=== PATIENT | female | born 1930 | race Caucasian/White ===

== ENCOUNTER 2019-06-30 13:51 | Day surgery (SDC) | payer MEDICARE, OTHER ==
[2019-06-30] MEDS ORDERED: Depo-Medrol 40 MG/ML IM ONE (13:52)
[2019-06-30] MEDS ORDERED: Marcaine 0.5% SDV 10 ML IJ ONE (13:52)
[2019-06-30] MEDS ORDERED: Xylocaine 1% Vial 30 ML PF IJ ONE (13:52)
--- NOTE | 2019-06-30 16:17 | XRAY ---
8 seconds fluoroscopy time in surgery for right SI joint injection.
--- NOTE | 2019-06-30 16:18 | XRAY ---
Indication: Right SI joint injection. Intraoperative fluoroscopy was provided for 8 seconds. 2 digital spot images submitted for interpretation demonstrates posterior needle tip projecting over the inferior right SI joint. Correlate with intraoperative findings/report.
== END 2019-06-30 15:12 | disposition home or self-care (01) ==
LOC: SDC-PAIN 13:51
PROVIDERS: ATTEND Psychiatry & Neurology Pain Medicine
DX: M46.1 Sacroiliitis, not elsewhere classified (principal); E11.9 Type 2 diabetes mellitus without complications; I10 Essential (primary) hypertension; I73.9 Peripheral vascular disease, unspecified; E06.3 Autoimmune thyroiditis; G62.9 Polyneuropathy, unspecified; Z79.899 Other long term (current) drug therapy
CPT/HCPCS: 27096; 72020; 77002; 82962; J1030; J2001; G0260

== ENCOUNTER 2019-07-28 12:32 | Day surgery (SDC) | payer MEDICARE, OTHER ==
[2019-07-28] MEDS ORDERED: Xylocaine 1% Vial 30 ML PF IJ ONE (12:33)
[2019-07-28] MEDS ORDERED: Depo-Medrol 40 MG/ML IM ONE (12:33)
[2019-07-28] MEDS ORDERED: Marcaine 0.5% SDV 10 ML IJ ONE (12:33)
--- NOTE | 2019-07-28 15:15 | XRAY ---
Indication: Right SI joint injection. Intraoperative fluoroscopy was provided for 6 seconds. 2 digital spot images submitted for interpretation demonstrates posterior needle tip projecting over the inferior right SI joint. Correlate with intraoperative findings/report.
--- NOTE | 2019-07-28 15:17 | XRAY ---
6 seconds fluoroscopy time in surgery for right SI joint injection.
== END 2019-07-28 14:12 | disposition home or self-care (01) ==
LOC: SDC-PAIN 12:32
PROVIDERS: ATTEND Psychiatry & Neurology Pain Medicine
DX: M46.1 Sacroiliitis, not elsewhere classified (principal); E11.9 Type 2 diabetes mellitus without complications; I10 Essential (primary) hypertension; E06.3 Autoimmune thyroiditis; I73.9 Peripheral vascular disease, unspecified; G62.9 Polyneuropathy, unspecified; Z79.899 Other long term (current) drug therapy
CPT/HCPCS: 72020; 77002; 82962; G0260; 27096; J1030; J2001

== ENCOUNTER 2019-10-06 13:37 | Day surgery (SDC) | payer MEDICARE, OTHER ==
[2019-10-06] MEDS ORDERED: Marcaine 0.5% SDV 10 ML IJ ONE (13:38)
[2019-10-06] MEDS ORDERED: Xylocaine 1% Vial 30 ML PF IJ ONE (13:38)
[2019-10-06] MEDS ORDERED: Depo-Medrol 40 MG/ML IM ONE (13:38)
[2019-10-06] MEDS ORDERED: Lactated Ringers 1,000 ML IV ONE (14:34)
--- NOTE | 2019-10-06 15:18 | XRAY ---
Indication: Right sacral RFA. Intraoperative fluoroscopy was provided for 33 seconds. 3 digital spot images submitted for interpretation demonstrates 4 posterior needle tips projecting over the right sacral nerve roots. Correlate with intraoperative findings/report.
--- NOTE | 2019-10-06 16:22 | XRAY ---
33 seconds fluoroscopy time in surgery for right SI joint RFA.
== END 2019-10-06 15:12 | disposition home or self-care (01) ==
LOC: SDC-PAIN 13:37
PROVIDERS: ATTEND Psychiatry & Neurology Pain Medicine
DX: M46.1 Sacroiliitis, not elsewhere classified (principal); E11.9 Type 2 diabetes mellitus without complications; I10 Essential (primary) hypertension; I73.9 Peripheral vascular disease, unspecified; E06.3 Autoimmune thyroiditis; G62.9 Polyneuropathy, unspecified; Z79.899 Other long term (current) drug therapy
CPT/HCPCS: 64625; 72202; 77002; 82962; J1030; J2001

== ENCOUNTER 2019-10-27 07:57 | Day surgery (SDC) | payer MEDICARE, OTHER ==
[2019-10-27] MEDS ORDERED: Depo-Medrol 40 MG/ML IM ONE (07:58)
[2019-10-27] MEDS ORDERED: Xylocaine 1% Vial 30 ML PF IJ ONE (07:58)
[2019-10-27] MEDS ORDERED: Sodium Chloride 0.9(Preservative Free) 10 ML IJ ONE (07:58)
--- NOTE | 2019-10-27 10:43 | XRAY ---
Indication: Right L4-S1 transforaminal LAVERNE. Intraoperative fluoroscopy was provided for 23 seconds. 4 digital spot images submitted for interpretation demonstrate posterior needle tips projecting over the expected course of the right L4 and L5 nerve roots. Small amount of contrast injected for needle tip placement. Correlate with intraoperative findings/report.
--- NOTE | 2019-10-27 11:20 | XRAY ---
23 seconds fluoroscopy time in surgery for right L4-S1 transforaminal LAVERNE.
[2019-10-27] MEDS ORDERED: Lactated Ringers 1,000 ML IV ONE (12:35)
== END 2019-10-27 10:12 | disposition home or self-care (01) ==
LOC: SDC-PAIN 07:57
PROVIDERS: ATTEND Psychiatry & Neurology Pain Medicine
DX: M54.16 Radiculopathy, lumbar region (principal); E11.9 Type 2 diabetes mellitus without complications; I10 Essential (primary) hypertension; E06.3 Autoimmune thyroiditis; I73.9 Peripheral vascular disease, unspecified; G62.9 Polyneuropathy, unspecified; Z79.899 Other long term (current) drug therapy
CPT/HCPCS: 64483; 64484; 72100; 77003; 82962; J1030; J2001; Q9966

== ENCOUNTER 2019-12-22 13:06 | Day surgery (SDC) | payer MEDICARE, OTHER ==
[2019-12-22] MEDS ORDERED: Depo-Medrol 40 MG/ML IM ONE (13:07)
[2019-12-22] MEDS ORDERED: Xylocaine 1% Vial 30 ML PF IJ ONE (13:07)
[2019-12-22] MEDS ORDERED: BUPIVACAINE 0.5% VIAL IJ ONE (13:07)
--- NOTE | 2019-12-22 15:05 | XRAY ---
Indication: Right hip bursa and intra-articular injection. Intraoperative fluoroscopy was provided for 35 seconds. 2 digital spot images submitted for interpretation demonstrates needle tip projecting just lateral to the right greater trochanter and a second new tip just lateral to the femur neck. Small amount of contrast injected for both needle tip placement. Correlate with intraoperative findings/report.
--- NOTE | 2019-12-22 15:07 | XRAY ---
35 seconds fluoroscopy time in surgery for right hip bursa and intra-articular injections.
== END 2019-12-22 14:38 | disposition home or self-care (01) ==
LOC: SDC-PAIN 13:06
PROVIDERS: ATTEND Psychiatry & Neurology Pain Medicine
DX: M70.61 Trochanteric bursitis, right hip (principal); M16.11 Unilateral primary osteoarthritis, right hip; E11.9 Type 2 diabetes mellitus without complications; I10 Essential (primary) hypertension; E06.3 Autoimmune thyroiditis; I73.9 Peripheral vascular disease, unspecified; G62.9 Polyneuropathy, unspecified; Z79.899 Other long term (current) drug therapy
CPT/HCPCS: 20610; 73502; 77002; 82962; J1030; J2001; Q9966

== ENCOUNTER 2020-05-03 13:31 | Day surgery (SDC) | payer MEDICARE, OTHER ==
[2020-05-03] MEDS ORDERED: BUPIVACAINE 0.5% VIAL IJ ONE (13:32)
[2020-05-03] MEDS ORDERED: Xylocaine 1% Vial 30 ML PF IJ ONE (13:32)
[2020-05-03] MEDS ORDERED: Depo-Medrol 40 MG/ML IM ONE (13:32)
--- NOTE | 2020-05-03 17:18 | XRAY ---
7 seconds fluoroscopy time in surgery for right SI joint injection.
--- NOTE | 2020-05-03 17:18 | XRAY ---
Indication: Right SI joint injection. Intraoperative fluoroscopy was provided for 7 seconds. 2 digital spot images submitted for interpretation demonstrates posterior needle tip projecting over the inferior right SI joint. Correlate with intraoperative findings/report.
== END 2020-05-03 15:48 | disposition home or self-care (01) ==
LOC: SDC-PAIN 13:31
PROVIDERS: ATTEND Psychiatry & Neurology Pain Medicine
DX: M46.1 Sacroiliitis, not elsewhere classified (principal); E11.9 Type 2 diabetes mellitus without complications; I10 Essential (primary) hypertension; I73.9 Peripheral vascular disease, unspecified; E06.3 Autoimmune thyroiditis; G62.9 Polyneuropathy, unspecified; Z79.899 Other long term (current) drug therapy
CPT/HCPCS: 27096; 72020; 77002; 82947; 82962; J1030; J2001; G0260

== ENCOUNTER 2020-06-28 13:02 | Day surgery (SDC) | payer MEDICARE, OTHER ==
[2020-06-28] MEDS ORDERED: Depo-Medrol 40 MG/ML IM ONE (13:03)
[2020-06-28] MEDS ORDERED: BUPIVACAINE 0.5% VIAL IJ ONE (13:03)
[2020-06-28] MEDS ORDERED: Xylocaine 1% Vial 30 ML PF IJ ONE (13:03)
--- NOTE | 2020-06-28 16:27 | XRAY ---
26 seconds fluoroscopy time in surgery for intra-articular injection of the left shoulder.
--- NOTE | 2020-06-28 16:37 | XRAY ---
Indication: Left shoulder injection. Intraoperative fluoroscopy provided for 26 seconds. 3 digital spot images submitted for interpretation demonstrates needle tip projecting over the left glenohumeral joint superiorly. Small amount of contrast injected for needle tip placement. Correlate with intraoperative findings/report.
== END 2020-06-28 16:20 | disposition home or self-care (01) ==
LOC: SDC-PAIN 13:02
PROVIDERS: ATTEND Psychiatry & Neurology Pain Medicine
DX: M19.012 Primary osteoarthritis, left shoulder (principal); M75.52 Bursitis of left shoulder; M79.18 Myalgia, other site; E11.9 Type 2 diabetes mellitus without complications; I10 Essential (primary) hypertension; E06.3 Autoimmune thyroiditis; I73.9 Peripheral vascular disease, unspecified; G62.9 Polyneuropathy, unspecified; Z79.899 Other long term (current) drug therapy
CPT/HCPCS: 20610; 62323; 73030; 77002; 82947; J1030; J2001; Q9966

== ENCOUNTER 2020-08-02 11:22 | Inpatient (IN) | payer MEDICARE, OTHER ==
[2020-08-02] MEDS ORDERED: Aplisol ID ONE (12:51)
[2020-08-03] MEDS ORDERED: NON-FORMULARY ITEM (Insulin Lispro 0 UNIT) SQ PRN (17:30)
[2020-08-03] MEDS ORDERED: ERTAPENEM SODIUM 1 GM IV SCH (17:30)
[2020-08-03] MEDS: Amaryl 2 MG PO SCH (17:59)
[2020-08-03] MEDS: HUMALOG SQ SCH (18:00)
[2020-08-03] MEDS: Lantus Insulin SQ SCH (18:00)
[2020-08-03] MEDS: TYLENOL EXTRA STRENGTH 500 MG PO SCH (20:58)
[2020-08-03] MEDS: HUMALOG SQ PRN (21:44)
[2020-08-04] MEDS: TYLENOL EXTRA STRENGTH 500 MG PO SCH ×3 (06:25→22:43)
[2020-08-04] MEDS: SYNTHROID 75 MCG PO SCH (06:26)
[2020-08-04] MEDS ORDERED: INSULIN ASPART 6 UNIT SQ SCH (08:00)
[2020-08-04] MEDS: HUMALOG SQ SCH ×3 (08:52→17:33)
[2020-08-04] MEDS: Amaryl 2 MG PO SCH ×2 (08:52→17:33)
[2020-08-04] MEDS: Lotensin 10 MG PO SCH (08:58)
[2020-08-04] MEDS: ENOXAPARIN SODIUM SQ SCH (08:58)
[2020-08-04] MEDS: Protonix 40MG Tablet PO SCH (08:59)
[2020-08-04] MEDS: PLAVIX 75 MG Tablet PO SCH (08:59)
[2020-08-04] MEDS: Ocuvite Tablet PO SCH (08:59)
[2020-08-04] MEDS: NORVASC 5 MG PO SCH (09:00)
[2020-08-04] MEDS: CLARITIN 10 MG PO SCH (09:01)
[2020-08-04] MEDS ORDERED: NON-FORMULARY ITEM (Cetirizine Hcl [Cetirizine Hcl] 10 MG) PO SCH (10:00)
[2020-08-04] MEDS ORDERED: MINERALS PO SCH (10:00)
[2020-08-04] MEDS ORDERED: LUTEIN PO SCH (10:00)
[2020-08-04] MEDS ORDERED: AMLODIPINE BESYLATE PO SCH (10:00)
[2020-08-04] MEDS ORDERED: Aplisol ID SCH (10:00)
[2020-08-04] MEDS ORDERED: VITS A C E PO SCH (10:00)
[2020-08-04] MEDS ORDERED: NON-FORMULARY ITEM (Omeprazole [Omeprazole] 40 MG) PO SCH (10:00)
[2020-08-04] MEDS ORDERED: BENAZEPRIL PO SCH (10:00)
[2020-08-04] MEDS: Invanz 1 GM*** 1 G in Sodium Chloride 100ML MINI-BAG PLUS 100 ML IV SCH (10:01)
[2020-08-04] MEDS: Aplisol ID SCH ×2 (10:41→12:56)
[2020-08-04] MEDS: Lantus Insulin SQ SCH (17:34)
--- NOTE | 2020-08-04 21:29 | PCM.HP ---
History of Present Illness - Chief Complaint Chief Complaint: DECONDITIONING R/T L HIP REPAIR History of Present Illness: is a 89 year old female.admitted for rehab after hip surgery - Review of Systems Constitutional: No Fever, No Chills Eyes: No Symptoms Ears, Nose, & Throat: No Symptoms Respiratory: No Cough, No Short Of Breath Cardiac: No Chest Pain, No Edema, No Syncope Abdominal/Gastrointestinal: No Abdominal Pain, No Nausea, No Vomiting, No Diarrhea Genitourinary Symptoms: No Dysuria Musculoskeletal: No Back Pain, No Neck Pain Skin: No Rash Neurological: No Dizziness, No Focal Weakness, No Sensory Changes Psychological: No Symptoms Endocrine: No Symptoms Hematologic/Lymphatic: No Symptoms Immunological/Allergic: No Symptoms Medications & Allergies Home Medications: Home Medication List Clopidogrel Bisulfate 75 mg [PLAVIX 75 MG Tablet] 75 mg PO DAILY 10/22/17 [History Confirmed 08/03/20] Glimepiride 2 mg [Amaryl 2 MG] 2 mg PO BID 10/22/17 [History Confirmed 08/03/20] Insulin Aspart [Novolog Flexpen] 6 unit SQ TIDWMEALS 10/22/17 [History Confirmed 08/03/20] Levothyroxine Sodium 75 Mcg [Synthroid 75 Mcg] 75 mcg PO 0600 10/22/17 [History Confirmed 08/03/20] Omeprazole 40 mg PO DAILY 10/22/17 [History Confirmed 08/03/20] Acetaminophen [Acetaminophen Extra Strength] 1,000 mg PO Q8H 08/03/20 [History Confirmed 08/03/20] Amlodipine Besylate/Benazepril [Lotrel 10-40 mg Capsule] 1 tab PO DAILY 08/03/20 [History Confirmed 08/03/20] Cetirizine HCl 10 mg PO DAILY 08/03/20 [History Confirmed 08/03/20] Enoxaparin Sodium [Lovenox] 30 mg SQ DAILY 08/03/20 [History Confirmed 08/03/20] Ertapenem Sodium 1 gm [Invanz 1 GM] 1 g IV [id number] 08/03/20 [History Confirmed 08/03/20] Insulin Glargine [Lantus Insulin] 24 unit SQ 1700 08/03/20 [History Confirmed 08/03/20] Insulin Lispro [Humalog] 0 unit SQ UD PRN 08/03/20 [History Confirmed 08/03/20] Vits A,C,E/Lutein/Minerals [Ocuvite with Lutein Tablet] 1 each PO DAILY 08/03/20 [History Confirmed 08/03/20] Allergies/Adverse Reactions: Allergies Allergy/AdvReac Type Severity Reaction Status Date / Time hydrocodone bitartrate Allergy Intermediate Nausea Verified 08/03/20 17:08 [From Vicodin] codeine Allergy Nausea Verified 08/03/20 17:08 nitrofurantoin Allergy Hives Verified 08/03/20 17:08 [From Macrodantin] oxycodone Allergy Verified 08/03/20 17:08 cephalexin [From Keflex] AdvReac Hives Verified 08/03/20 17:08 ciprofloxacin [From Cipro] AdvReac Hives Verified 08/03/20 17:08 - Past Medical History Past Medical History: Yes Neurological History: No Pertinent History ENT History: No Pertinent History Cardiac History: Hypertension, Other Respiratory History: Bronchitis Endocrine Medical History: Diabetes Type II, Other Musculoskelatal History: Other GI Medical History: No Pertinent History History: Other Pyscho-Social History: No Pertinent History Reproductive Disorders: No Pertinent History Comment: GERD, Spondylosis, Cellulitis (LLE), cataract removal, Bladder surgery, Microvascular decompression, Red's Disease - Female History Are you now?: No - Past Surgical History Past Surgical History: Yes Neuro Surgical History: No Pertinent History Cardiac History: No Pertinent History Respiratory Surgery: No Pertinent History GI Surgical History: No Pertinent History Genitourinary Surgical Hx: No Pertinent History Musculskeletal Surgical Hx: Orthopedic Surgery Female Surgical History: No Pertinent History Other Surgical History: bladder sling, micro vascular decompression to head after fall on the ice,Cataract removed w/ lens implant rodrigo eye, l hip orif - Social History Smoking Status: Former smoker Exposure to second hand smoke: No Alcohol: None Drug Use: none - Physical Exam Vital Signs: Vital Signs - 24 hr Temp Pulse BP Pulse Ox 08/04/20 19:55 95 08/04/20 04:21 98 F 76 126/59 92 L General Appearance: no apparent distress, alert Neurologic Exam: alert, oriented x 3, cooperative, normal mood/affect, nml cerebellar function, nml station & gait, sensation nml, No motor deficits Eye Exam: PERRL/EOMI, eyes nml inspection Ears, Nose, Throat Exam: normal ENT inspection, TMs normal, pharynx normal, moist mucous membranes Neck Exam: normal inspection, non-tender, supple, full range of motion Respiratory Exam: normal breath sounds, lungs clear, No respiratory distress Cardiovascular Exam: regular rate/rhythm, normal heart sounds, normal peripheral pulses Gastrointestinal/Abdomen Exam: soft, normal bowel sounds, No tenderness, No mass Back Exam: normal inspection, normal range of motion, No CVA tenderness, No vertebral tenderness Extremity Exam: normal inspection, normal range of motion, pelvis stable Skin Exam: normal color, warm, dry, No rash Wound Assessment: Skin/Wound Assessment Wound/Incision Assessment Start: 08/03/20 17:19 Text: Status: Active Freq: Q6H Protocol: Document 08/04/20 20:00 SG (Rec: 08/04/20 20:28 SG [id number]) Wound/Incision Assessment Left Lower Arm Wound Assessment Shift Assessment Wound Type Skin Tear Wound Stage Non Pressure Wound Dressing Status Dry & Intact Drainage Amount None General Appearance Clean/Dry Comment Dressing CDI Left Hip Wound Assessment Shift Assessment Wound Type Incision Wound Stage Non Pressure Wound Dressing Status Changed Drainage Amount None Drainage Odor None/Absent General Appearance Genia Intact,Clean/Dry Comment DRESSING CDI. Wound Photo Photo Taken No Lymphatic Exam: No adenopathy Results - Labs Lab/Micro Results: Lab Results-Last 24 Hours 08/03/20 08/04/20 08/04/20 Range/Units 21:40 07:07 10:56 POC Glucometer 203 H 94 185 H (74 to 106) mg/dL Hemoglobin A1c (4.5-6.0) % 08/04/20 08/04/20 Range/Units 15:46 16:14 POC Glucometer 197 H (74 to 106) mg/dL Hemoglobin A1c 6.34 H (4.5-6.0) % Accuchecks Date 08/04/20 Date 08/03/20 Time 22:00 - Other Procedures and Tests Respiratory Therapy 08/04/20 21:19 Oxygen NASAL CANNULA 2 lpm Assessment/Plan (1) Debilitated patient Current Visit: Yes Status: Acute Code(s): R53.81 - OTHER MALAISE (2) Hip fracture Current Visit: Yes Status: Acute Qualifiers: Encounter type: sequela Code(s): S72.009A - FRACTURE OF UNSP PART OF NECK OF UNSP FEMUR, INIT
[2020-08-05] MEDS: TYLENOL EXTRA STRENGTH 500 MG PO SCH ×3 (06:24→21:17)
[2020-08-05] MEDS: SYNTHROID 75 MCG PO SCH (06:24)
[2020-08-05] MEDS: HUMALOG SQ SCH ×3 (08:26→17:04)
[2020-08-05] MEDS: Amaryl 2 MG PO SCH ×2 (08:26→17:04)
[2020-08-05] MEDS: NORVASC 5 MG PO SCH (09:37)
[2020-08-05] MEDS: Ocuvite Tablet PO SCH (09:37)
[2020-08-05] MEDS: PLAVIX 75 MG Tablet PO SCH (09:37)
[2020-08-05] MEDS: Lotensin 10 MG PO SCH (09:37)
[2020-08-05] MEDS: Protonix 40MG Tablet PO SCH (09:37)
[2020-08-05] MEDS: CLARITIN 10 MG PO SCH (09:38)
[2020-08-05] MEDS: ENOXAPARIN SODIUM SQ SCH (09:38)
[2020-08-05] MEDS: Invanz 1 GM*** 1 G in Sodium Chloride 100ML MINI-BAG PLUS 100 ML IV SCH (09:38)
[2020-08-05] MEDS: Lantus Insulin SQ SCH (17:04)
[2020-08-05] MEDS: HUMALOG SQ PRN (17:05)
[2020-08-06] MEDS: TYLENOL EXTRA STRENGTH 500 MG PO SCH ×3 (05:56→21:41)
[2020-08-06] MEDS: SYNTHROID 75 MCG PO SCH (05:57)
[2020-08-06] MEDS: PLAVIX 75 MG Tablet PO SCH (08:51)
[2020-08-06] MEDS: CLARITIN 10 MG PO SCH (08:51)
[2020-08-06] MEDS: NORVASC 5 MG PO SCH (08:51)
[2020-08-06] MEDS: Amaryl 2 MG PO SCH ×2 (08:51→16:45)
[2020-08-06] MEDS: Ocuvite Tablet PO SCH (08:51)
[2020-08-06] MEDS: Lotensin 10 MG PO SCH (08:52)
[2020-08-06] MEDS: Protonix 40MG Tablet PO SCH (08:52)
[2020-08-06] MEDS: HUMALOG SQ SCH ×3 (08:52→16:45)
[2020-08-06] MEDS: ENOXAPARIN SODIUM SQ SCH (08:52)
[2020-08-06] MEDS: Invanz 1 GM*** 1 G in Sodium Chloride 100ML MINI-BAG PLUS 100 ML IV SCH (09:26)
[2020-08-06] MEDS: HUMALOG SQ PRN ×2 (11:50→22:04)
[2020-08-06] MEDS: Lantus Insulin SQ SCH (16:45)
[2020-08-07] MEDS: SYNTHROID 75 MCG PO SCH (05:02)
[2020-08-07] MEDS: TYLENOL EXTRA STRENGTH 500 MG PO SCH ×3 (05:02→21:16)
[2020-08-07] MEDS: CLARITIN 10 MG PO SCH (09:19)
[2020-08-07] MEDS: HUMALOG SQ SCH ×3 (09:19→20:05)
[2020-08-07] MEDS: PLAVIX 75 MG Tablet PO SCH (09:19)
[2020-08-07] MEDS: Amaryl 2 MG PO SCH ×2 (09:19→17:53)
[2020-08-07] MEDS: NORVASC 5 MG PO SCH (09:19)
[2020-08-07] MEDS: Lotensin 10 MG PO SCH (09:20)
[2020-08-07] MEDS: Protonix 40MG Tablet PO SCH (09:20)
[2020-08-07] MEDS: ENOXAPARIN SODIUM SQ SCH (09:20)
[2020-08-07] MEDS: Ocuvite Tablet PO SCH (09:20)
--- NOTE | 2020-08-07 15:37 | PCM.NOTE ---
Date and Time: 08/07/20 1537 Subjective Assessment: doing ok - Review of Systems Constitutional: No Fever, No Chills Eyes: No Symptoms Ears, Nose, & Throat: No Symptoms Respiratory: No Cough, No Short Of Breath Cardiac: No Chest Pain, No Edema, No Syncope Abdominal/Gastrointestinal: No Abdominal Pain, No Nausea, No Vomiting, No Diarrhea Genitourinary Symptoms: No Dysuria Musculoskeletal: No Back Pain, No Neck Pain Skin: No Rash Neurological: No Dizziness, No Focal Weakness, No Sensory Changes Psychological: No Symptoms Endocrine: No Symptoms Hematologic/Lymphatic: No Symptoms Immunological/Allergic: No Symptoms Objective Exam General Appearance: no apparent distress, alert Neurologic Exam: alert, oriented x 3, cooperative, normal mood/affect, nml cerebellar function, sensation nml, No motor deficits Skin Exam: normal color, warm, dry Wound Assessment: Skin/Wound Assessment Wound/Incision Assessment Start: 08/03/20 17:19 Text: Status: Active Freq: Q6H Protocol: Document 08/07/20 14:07 RAFITA (Rec: 08/07/20 14:08 [id number]) Wound/Incision Assessment Left Lower Arm Wound Assessment Shift Assessment Wound Type Skin Tear Wound Stage Non Pressure Wound Dressing Status Dry & Intact Drainage Amount None General Appearance Clean/Dry Secondary Dressing Absorbant Pad Comment Dressing CDI Left Hip Wound Assessment Shift Assessment Wound Type Incision Wound Stage Non Pressure Wound Dressing Status Dry & Intact Drainage Amount None Drainage Odor None/Absent General Appearance Clean/Dry Surrounding Tissue Purple,Edematous Topical Solution/Irrigant Enzymatic Irrigant Primary Dressing Gauze Pads Comment DRESSING CDI Wound Photo Photo Taken No Eye Exam: PERRL, EOMI, eyes nml inspection Ears, Nose, Throat Exam: normal ENT inspection, pharynx normal, moist mucous membranes Neck Exam: normal inspection, non-tender, supple, full range of motion Respiratory Exam: normal breath sounds, lungs clear, No respiratory distress Cardiovascular Exam: regular rate/rhythm, normal heart sounds Gastrointestinal/Abdomen Exam: soft, No tenderness, No mass Extremity Exam: normal inspection, normal range of motion Back Exam: normal inspection, normal range of motion, No CVA tenderness, No vertebral tenderness Pelvic Exam: deferred Rectal Exam: deferred OBJECTIVE DATA Vital Signs: Vital Signs - 24 hr Temp Pulse Resp BP Pulse Ox 08/07/20 08:00 97.2 F 82 16 161/71 97 08/07/20 07:16 97 08/06/20 20:00 98.1 F 75 20 141/61 96 08/06/20 19:50 95 08/06/20 16:56 98.3 F 78 16 126/58 97 Pain Assessment - Last Documented Pain Intensity 5 Pain Scale Used 0-10 Pain Scale Intake and Output: Intake & Output 08/05/20 08/06/20 08/07/20 08/08/20 10:59 11:59 11:59 11:59 Intake Total 1180 120 Output Total 300 Balance 880 120 Weight Lab Results: Lab Results-Last 24 Hours 08/06/20 08/06/20 08/06/20 Range/Units 16:27 16:31 16:35 Glucose 56 L (74-106) mg/dL POC Glucometer 47 L* 48 L* (50 to 500) mg/dL 08/06/20 08/06/20 08/07/20 Range/Units 17:29 21:54 06:58 Glucose (74-106) mg/dL POC Glucometer 80 244 H 237 H (50 to 500) mg/dL 08/07/20 Range/Units 11:30 Glucose (74-106) mg/dL POC Glucometer 218 H (50 to 500) mg/dL Multi-Disciplinary Progress Notes: Multi-Disciplinary Progress Notes 08/07/20 12:20 Case Management Note by Belinda Cain PATIENT PLANS TO CONTINUE TO WORK WITH PT TO MAXIMIZE SWING BED DAYS AND IS HOPEFUL TO RETURN HOME AT TIME OF DC Initialized on 08/07/20 12:20 - END OF NOTE Assessment/Plan (1) Debilitated patient Current Visit: Yes Status: Acute Assessment & Plan: Chief Complaint Diagnosis DECONDITIONING R/T L HIP REPAIR Allergies Allergy/AdvReac Type Severity Reaction Status Date / Time hydrocodone bitartrate Allergy Intermediate Nausea Verified 08/03/20 17:08 [From Vicodin] codeine Allergy Nausea Verified 08/03/20 17:08 nitrofurantoin Allergy Hives Verified 08/03/20 17:08 [From Macrodantin] oxycodone Allergy Verified 08/03/20 17:08 cephalexin [From Keflex] AdvReac Hives Verified 08/03/20 17:08 ciprofloxacin [From Cipro] AdvReac Hives Verified 08/03/20 17:08 Vital Signs (Last 24 hours) Temp Pulse Resp BP Pulse Ox 08/07/20 08:00 97.2 F 82 16 161/71 97 08/07/20 07:16 97 08/06/20 20:00 98.1 F 75 20 141/61 96 08/06/20 19:50 95 08/06/20 16:56 98.3 F 78 16 126/58 97 Home Medications Medication Instructions Recorded Confirmed Last Taken Type Acetaminophen [Acetaminophen Extra 1,000 mg PO Q8H 08/03/20 08/03/20 08/03/20 14:00 History Strength] Amlodipine Besylate/Benazepril 1 tab PO DAILY 08/03/20 08/03/20 Unknown History [Lotrel 10-40 mg Capsule] Cetirizine HCl 10 mg PO DAILY 08/03/20 08/03/20 Unknown History Enoxaparin Sodium [Lovenox] 30 mg SQ DAILY 08/03/20 08/03/20 08/03/20 09:20 History Ertapenem Sodium 1 gm [Invanz 1 1 g IV [id number] 08/03/20 08/03/20 08/03/20 History GM] Insulin Glargine [Lantus 24 unit SQ 1700 08/03/20 08/03/20 Unknown History Insulin] Insulin Lispro [Humalog] 0 unit SQ UD PRN 08/03/20 08/03/20 Unknown History Vits A,C,E/Lutein/Minerals 1 each PO DAILY 08/03/20 08/03/20 Unknown History [Ocuvite with Lutein Tablet] Current Medications Generic Name Dose Route Start Last Admin Trade Name Samm PRN Reason Stop Dose Admin Acetaminophen 1,000 mg 08/03/20 22:00 08/07/20 13:22 Tylenol Extra Strength 500 Mg PO 09/02/20 21:59 1,000 mg Q8HT ASAEL Administration Amlodipine Besylate 10 mg 08/04/20 10:00 08/07/20 09:19 Norvasc 5 Mg PO 09/03/20 09:59 10 mg DAILY ASAEL Administration Benazepril HCl 40 mg 08/04/20 10:00 08/07/20 09:20 Lotensin 10 Mg PO 09/03/20 09:59 40 mg DAILY ASAEL Administration Clopidogrel Bisulfate 75 mg 08/04/20 10:00 08/07/20 09:19 Plavix 75 Mg Tablet PO 09/03/20 09:59 75 mg DAILY ASAEL Administration Enoxaparin Sodium 30 mg 08/04/20 10:00 08/07/20 09:20 Enoxaparin Sodium SQ 09/03/20 09:59 30 mg DAILY ASAEL Administration Glimepiride 2 mg 08/03/20 18:00 08/07/20 09:19 Amaryl 2 Mg PO 09/02/20 17:59 2 mg BIDWM ASAEL Administration Insulin Glargine 24 unit 08/03/20 18:00 08/06/20 16:45 Lantus Insulin SQ 09/02/20 17:59 Not Given 1700 ASAEL Insulin Human Lispro 6 unit 08/03/20 18:00 08/07/20 11:55 Humalog SQ 09/02/20 17:59 6 unit TIDWMEALS ASAEL Administration Insulin Human Lispro 0 unit 08/07/20 09:28 Humalog SQ 09/06/20 09:27 UD PRN HYPERGLYCEMIA Levothyroxine Sodium 75 mcg 08/04/20 06:00 08/07/20 05:02 Synthroid 75 Mcg PO 09/03/20 05:59 75 mcg 0600 ASAEL Administration Loratadine 10 mg 08/04/20 10:00 08/07/20 09:19 Claritin 10 Mg PO 09/03/20 09:59 10 mg DAILY ASAEL Administration Multivitamins/Minerals 1 tab 08/04/20 10:00 08/07/20 09:20 Ocuvite Tablet PO 09/03/20 09:59 1 tab DAILY ASAEL Administration Pantoprazole Sodium 40 mg 08/04/20 10:00 08/07/20 09:20 Protonix 40mg Tablet PO 09/03/20 09:59 40 mg DAILY ASAEL Administration Tuberculin PPD 5 unit 08/15/20 10:00 Aplisol ID 08/15/20 10:01 DAILY ASAEL Discontinued Medications Generic Name Dose Route Start Last Admin Trade Name Freq PRN Reason Stop Dose Admin Ertapenem 1 g/ Sodium Chloride 100 mls @ 200 mls/hr 08/04/20 10:00 08/06/20 09:26 IV 08/06/20 10:29 200 mls/hr DAILY ASAEL Administration Insulin Human Lispro 0 unit 08/03/20 17:45 08/06/20 22:04 Humalog SQ 09/02/20 17:44 3 unit UD PRN Administration Tuberculin PPD 5 unit 08/03/20 10:00 08/04/20 12:56 Aplisol ID 08/03/20 10:01 Not Given DAILY ASAEL Tuberculin PPD 5 unit 08/04/20 10:00 08/04/20 10:45 Aplisol ID 08/04/20 10:01 5 unit DAILY ASAEL Administration Intake & Output (Last 24 hours) 08/05/20 08/06/20 08/07/20 08/08/20 10:59 11:59 11:59 11:59 Intake Total 1180 120 Output Total 300 Balance 880 120 Weight Laboratory Results (Last 24 hours) 08/07/20 08/07/20 08/06/20 11:30 06:58 21:54 Glucose POC Glucometer 218 H 237 H 244 H 08/06/20 08/06/20 08/06/20 17:29 16:35 16:31 Glucose 56 L POC Glucometer 80 48 L* 08/06/20 16:27 Glucose POC Glucometer 47 L* Orders (Last 24 hours) Category Date Time Status DC IV [Discontinue IV] .NOW Care 08/07/20 09:31 Active Weight,Daily Q7D Care 08/09/20 05:00 Active BMP Q14D Lab 08/16/20 04:00 Ordered Glucose Stat Lab 08/06/20 16:35 Completed POCT GLUCOSE Stat Lab 08/06/20 16:27 Completed POCT GLUCOSE Stat Lab 08/06/20 16:31 Completed POCT GLUCOSE Stat Lab 08/06/20 17:29 Completed POCT GLUCOSE Stat Lab 08/06/20 21:54 Completed POCT GLUCOSE Stat Lab 08/07/20 06:58 Completed POCT GLUCOSE Stat Lab 08/07/20 11:30 Completed Insulin Lispro [Humalog] Med 08/07/20 09:28 Active See Dose Instructions SQ UD PRN Tuberculin,Purif.prot.deriv. [Aplisol] Med 08/15/20 10:00 Active 5 unit ID DAILY Patient Care Notes (Last 24 hours) 08/07/20 12:20 Case Management Note by Belinda Cain PATIENT PLANS TO CONTINUE TO WORK WITH PT TO MAXIMIZE SWING BED DAYS AND IS HOPEFUL TO RETURN HOME AT TIME OF DC Initialized on 08/07/20 12:20 - END OF NOTE 08/07/20 09:50 Nursing Note by Carlotta Guerra Pt requested to remove N/C. Removed N/C; on RA approximated 20-30 minutes. Spo2 @ 95 % on RA. Initialized on 08/07/20 09:50 - END OF NOTE 08/07/20 09:29 SBAR Note by Carlotta Guerra SITUATION I am calling about MESSI SALGADO the patient's code status is Full Code The problem I am calling about is: Dr Bello called ; update on pt regarding her insulin verses her accu check results. Received new orders. ASSESSMENT RECOMMENDATION Physician notified at 0929 New Orders received: Vital Signs (Last 4 hours) Temp Pulse Resp BP Pulse Ox 08/07/20 08:00 97.2 F 82 16 161/71 97 08/07/20 07:16 97 Diagnois, Code Status Date of Arrival on Unit 08/03/20 Admitted From Direct Admit Diagnosis DECONDITIONING R/T L HIP REPAIR Resucitation Status Full Code Intake and Output 12 Hours 08/07/20 08/07/20 06:59 18:59 Intake Total 100 240 Output Total 300 Balance -200 240 Intake: Intake, Oral Amount 100 240 Output: Output, Urine Amount 300 Other: Number of Voids 1 Number of Bowel Movements 1 Physical Assessment Anxiety Level None,at ease,Awake,Calm,Low Mental Status Alert Patient Orientation Person,Place,Time Coma Scale Total 15 Breath Sounds [Anterior/ Clear,Diminished Posterior Throughout] Breath Sounds [Anterior Clear Throughout] Bowel Sounds [All Quadrants] Present Abdomen Description Soft,Non-Tender Urine Appearance Not Assessed Skin Color Normal for Race Skin Temperature Warm Pain Scale (Last 12 Hours) Pain Intensity 0 PAST MEDICAL HISTORY Neurological History No Pertinent History ENT History No Pertinent History Endocrine Medical History Diabetes Type II,Other Respiratory History Bronchitis Cardiac History Hypertension,Other GI Medical History No Pertinent History History Other Reproductive Disorders No Pertinent History Pyscho-Social History No Pertinent History Communicable Disease No Pertinent History Comment GERD, Spondylosis, Cellulitis (LLE), cataract removal, Bladder surgery, Microvascular decompression, Red's Disease Diabetic (Last 12 Hours) Time 07:30 POCT Glucose (LAST VALUE) {237 mg/dL (74 to 106) H} POCT Glucose (LAST VALUE) {244 mg/dL (74 to 106) H} POCT Glucose (LAST VALUE) {244 mg/dL (74 to 106) H} Lab Results (Last 12 Hours) 08/07/20 08/06/20 Range/Units 06:58 21:54 POC Glucometer 237 H 244 H (74 to 106) mg/dL Orders (Last 12 Hours) Category Date Time Status Weight,Daily Q7D Care 08/09/20 05:00 Active BMP Q14D Lab 08/16/20 04:00 Ordered Insulin Lispro [Humalog] Med 08/07/20 09:28 Ordered See Dose Instructions SQ UD PRN Tuberculin,Purif.prot.deriv. [Aplisol] Med 08/15/20 10:00 Active 5 unit ID DAILY Active Visit Medications Generic Name Dose Route Start Last Admin Trade Name Freq PRN Reason Stop Dose Admin Acetaminophen 1,000 mg 08/03/20 22:00 08/07/20 05:02 Tylenol Extra Strength 500 Mg PO 09/02/20 21:59 1,000 mg Q8HT ASAEL Administration Amlodipine Besylate 10 mg 08/04/20 10:00 08/07/20 09:19 Norvasc 5 Mg PO 09/03/20 09:59 10 mg DAILY ASAEL Administration Benazepril HCl 40 mg 08/04/20 10:00 08/07/20 09:20 Lotensin 10 Mg PO 09/03/20 09:59 40 mg DAILY ASAEL Administration Clopidogrel Bisulfate 75 mg 08/04/20 10:00 08/07/20 09:19 Plavix 75 Mg Tablet PO 09/03/20 09:59 75 mg DAILY ASAEL Administration Enoxaparin Sodium 30 mg 08/04/20 10:00 08/07/20 09:20 Enoxaparin Sodium SQ 09/03/20 09:59 30 mg DAILY ASAEL Administration Glimepiride 2 mg 08/03/20 18:00 08/07/20 09:19 Amaryl 2 Mg PO 09/02/20 17:59 2 mg BIDWM ASAEL Administration Insulin Glargine 24 unit 08/03/20 18:00 08/06/20 16:45 Lantus Insulin SQ 09/02/20 17:59 Not Given 1700 [facility] Insulin Human Lispro 6 unit 08/03/20 18:00 08/06/20 16:45 Humalog SQ 09/02/20 17:59 Not Given TIDWMEALS [facility] Levothyroxine Sodium 75 mcg 08/04/20 06:00 08/07/20 05:02 Synthroid 75 Mcg PO 09/03/20 05:59 75 mcg 0600 ASAEL Administration Loratadine 10 mg 08/04/20 10:00 08/07/20 09:19 Claritin 10 Mg PO 09/03/20 09:59 10 mg DAILY [facility] Administration Multivitamins/Minerals 1 tab 08/04/20 10:00 08/07/20 09:20 Ocuvite Tablet PO 09/03/20 09:59 1 tab DAILY ASAEL Administration Pantoprazole Sodium 40 mg 08/04/20 10:00 08/07/20 09:20 Protonix 40mg Tablet PO 09/03/20 09:59 40 mg DAILY ASAEL Administration Tuberculin PPD 5 unit 08/15/20 10:00 Aplisol ID 08/15/20 10:01 DAILY [facility] Home Medications Medication Instructions Recorded Confirmed Last Taken Type Acetaminophen [Acetaminophen Extra 1,000 mg PO Q8H 08/03/20 08/03/20 08/03/20 14:00 History Strength] Amlodipine Besylate/Benazepril 1 tab PO DAILY 08/03/20 08/03/20 Unknown History [Lotrel 10-40 mg Capsule] Cetirizine HCl 10 mg PO DAILY 08/03/20 08/03/20 Unknown History Enoxaparin Sodium [Lovenox] 30 mg SQ DAILY 08/03/20 08/03/20 08/03/20 09:20 History Ertapenem Sodium 1 gm [Invanz 1 1 g IV [id number] 08/03/20 08/03/20 08/03/20 History GM] Insulin Glargine [Lantus 24 unit SQ 1700 08/03/20 08/03/20 Unknown History Insulin] Insulin Lispro [Humalog] 0 unit SQ UD PRN 08/03/20 08/03/20 Unknown History Vits A,C,E/Lutein/Minerals 1 each PO DAILY 08/03/20 08/03/20 Unknown History [Ocuvite with Lutein Tablet] Initialized on 08/07/20 09:29 - END OF NOTE 08/06/20 17:52 Nursing Note by Carlotta Guerra Recheck accu check;80. Initialized on 08/06/20 17:52 - END OF NOTE 08/06/20 16:37 Nursing Note by Carlotta Guerra Glucose drawn. Daughter here with pt's supper. Pt sat up with her supper meal at this time. Initialized on 08/06/20 16:37 - END OF NOTE 08/06/20 16:33 Nursing Note by Carlotta Guerra Accu check 47 and 48 results, Glucose ordered per protocol. Called lab and made aware. Pt A&O times 3. Skin W/D. Initialized on 08/06/20 16:33 - END OF NOTE Code(s): R53.81 - OTHER MALAISE (2) Hip fracture Current Visit: Yes Status: Acute Qualifiers: Encounter type: sequela Code(s): S72.009A - FRACTURE OF UNSP PART OF NECK OF UNSP FEMUR, INIT
[2020-08-07] MEDS: Lantus Insulin SQ SCH (17:53)
[2020-08-07] MEDS: HUMALOG SQ PRN (21:30)
[2020-08-08] MEDS: TYLENOL EXTRA STRENGTH 500 MG PO SCH ×3 (06:02→21:02)
[2020-08-08] MEDS: SYNTHROID 75 MCG PO SCH (06:02)
[2020-08-08] MEDS: Amaryl 2 MG PO SCH ×2 (07:35→16:38)
[2020-08-08] MEDS: CLARITIN 10 MG PO SCH (09:57)
[2020-08-08] MEDS: NORVASC 5 MG PO SCH (09:58)
[2020-08-08] MEDS: Lotensin 10 MG PO SCH (09:58)
[2020-08-08] MEDS: PLAVIX 75 MG Tablet PO SCH (09:59)
[2020-08-08] MEDS: Protonix 40MG Tablet PO SCH (09:59)
[2020-08-08] MEDS: Ocuvite Tablet PO SCH (09:59)
[2020-08-08] MEDS: ENOXAPARIN SODIUM SQ SCH (10:01)
[2020-08-08] MEDS: HUMALOG SQ PRN ×3 (12:19→21:06)
[2020-08-08] MEDS: Lantus Insulin SQ SCH (18:00)
[2020-08-09] MEDS: TYLENOL EXTRA STRENGTH 500 MG PO SCH ×3 (06:11→21:02)
[2020-08-09] MEDS: SYNTHROID 75 MCG PO SCH (06:11)
[2020-08-09] MEDS: Amaryl 2 MG PO SCH ×2 (07:55→16:35)
[2020-08-09] MEDS: ENOXAPARIN SODIUM SQ SCH (09:06)
[2020-08-09] MEDS: Lotensin 10 MG PO SCH (09:06)
[2020-08-09] MEDS: NORVASC 5 MG PO SCH (09:07)
[2020-08-09] MEDS: CLARITIN 10 MG PO SCH (09:07)
[2020-08-09] MEDS: Protonix 40MG Tablet PO SCH (09:07)
[2020-08-09] MEDS: PLAVIX 75 MG Tablet PO SCH (09:07)
[2020-08-09] MEDS: Ocuvite Tablet PO SCH (09:07)
[2020-08-09] MEDS: HUMALOG SQ PRN ×2 (11:56→16:37)
[2020-08-09] MEDS: Colace 100 MG PO SCH ×2 (15:07→21:02)
[2020-08-09] MEDS: Lantus Insulin SQ SCH (16:35)
[2020-08-10] MEDS: SYNTHROID 75 MCG PO SCH (05:14)
[2020-08-10] MEDS: TYLENOL EXTRA STRENGTH 500 MG PO SCH ×3 (05:14→21:21)
[2020-08-10] MEDS: Amaryl 2 MG PO SCH ×2 (08:28→17:07)
[2020-08-10] MEDS: Lotensin 10 MG PO SCH (09:02)
[2020-08-10] MEDS: ENOXAPARIN SODIUM SQ SCH (09:02)
[2020-08-10] MEDS: Protonix 40MG Tablet PO SCH (09:02)
[2020-08-10] MEDS: NORVASC 5 MG PO SCH (09:02)
[2020-08-10] MEDS: PLAVIX 75 MG Tablet PO SCH (09:02)
[2020-08-10] MEDS: Ocuvite Tablet PO SCH (09:02)
[2020-08-10] MEDS: CLARITIN 10 MG PO SCH (09:02)
[2020-08-10] MEDS: Colace 100 MG PO SCH ×2 (09:03→21:21)
[2020-08-10] MEDS: HUMALOG SQ PRN ×2 (12:10→21:24)
[2020-08-10] MEDS: Lantus Insulin SQ SCH (17:07)
[2020-08-11] MEDS: SYNTHROID 75 MCG PO SCH (05:07)
[2020-08-11] MEDS: TYLENOL EXTRA STRENGTH 500 MG PO SCH ×3 (05:07→20:56)
[2020-08-11] MEDS: Protonix 40MG Tablet PO SCH (08:37)
[2020-08-11] MEDS: NORVASC 5 MG PO SCH (08:37)
[2020-08-11] MEDS: Lotensin 10 MG PO SCH (08:37)
[2020-08-11] MEDS: CLARITIN 10 MG PO SCH (08:37)
[2020-08-11] MEDS: ENOXAPARIN SODIUM SQ SCH (08:37)
[2020-08-11] MEDS: Ocuvite Tablet PO SCH (08:37)
[2020-08-11] MEDS: PLAVIX 75 MG Tablet PO SCH (08:38)
[2020-08-11] MEDS: Amaryl 2 MG PO SCH ×2 (08:38→17:22)
[2020-08-11] MEDS: Colace 100 MG PO SCH ×2 (08:38→20:57)
[2020-08-11] MEDS: HUMALOG SQ PRN ×2 (11:36→20:57)
[2020-08-11] MEDS: Lantus Insulin SQ SCH (17:23)
[2020-08-12] MEDS: SYNTHROID 75 MCG PO SCH (05:29)
[2020-08-12] MEDS: TYLENOL EXTRA STRENGTH 500 MG PO SCH ×3 (05:29→21:14)
[2020-08-12] MEDS: Amaryl 2 MG PO SCH ×2 (09:07→17:35)
[2020-08-12] MEDS: Lotensin 10 MG PO SCH (09:07)
[2020-08-12] MEDS: PLAVIX 75 MG Tablet PO SCH (09:08)
[2020-08-12] MEDS: Ocuvite Tablet PO SCH (09:09)
[2020-08-12] MEDS: Colace 100 MG PO SCH ×3 (09:09→21:16)
[2020-08-12] MEDS: NORVASC 5 MG PO SCH (09:10)
[2020-08-12] MEDS: Protonix 40MG Tablet PO SCH (09:10)
[2020-08-12] MEDS: CLARITIN 10 MG PO SCH (09:10)
[2020-08-12] MEDS: ENOXAPARIN SODIUM SQ SCH (09:11)
[2020-08-12] MEDS: Lantus Insulin SQ SCH (17:35)
[2020-08-12] MEDS: HUMALOG SQ PRN (17:36)
[2020-08-13] MEDS: TYLENOL EXTRA STRENGTH 500 MG PO SCH ×3 (06:16→21:10)
[2020-08-13] MEDS: SYNTHROID 75 MCG PO SCH (06:16)
[2020-08-13] MEDS: CLARITIN 10 MG PO SCH (08:57)
[2020-08-13] MEDS: Lotensin 10 MG PO SCH (08:57)
[2020-08-13] MEDS: Protonix 40MG Tablet PO SCH (08:57)
[2020-08-13] MEDS: Ocuvite Tablet PO SCH (08:57)
[2020-08-13] MEDS: PLAVIX 75 MG Tablet PO SCH (08:57)
[2020-08-13] MEDS: Amaryl 2 MG PO SCH ×2 (08:57→16:41)
[2020-08-13] MEDS: NORVASC 5 MG PO SCH (08:57)
[2020-08-13] MEDS: ENOXAPARIN SODIUM SQ SCH (08:58)
[2020-08-13] MEDS: Colace 100 MG PO SCH ×2 (08:58→21:10)
[2020-08-13] MEDS: HUMALOG SQ PRN ×2 (16:44→21:10)
[2020-08-13] MEDS: Lantus Insulin SQ SCH (16:44)
[2020-08-14] MEDS: TYLENOL EXTRA STRENGTH 500 MG PO SCH ×3 (05:29→21:05)
[2020-08-14] MEDS: SYNTHROID 75 MCG PO SCH (05:35)
[2020-08-14] MEDS: Amaryl 2 MG PO SCH ×2 (08:42→16:50)
[2020-08-14] MEDS: ENOXAPARIN SODIUM SQ SCH (09:53)
[2020-08-14] MEDS: NORVASC 5 MG PO SCH (09:54)
[2020-08-14] MEDS: PLAVIX 75 MG Tablet PO SCH (09:54)
[2020-08-14] MEDS: CLARITIN 10 MG PO SCH (09:54)
[2020-08-14] MEDS: Ocuvite Tablet PO SCH (09:54)
[2020-08-14] MEDS: Lotensin 10 MG PO SCH (09:54)
[2020-08-14] MEDS: Protonix 40MG Tablet PO SCH (09:55)
[2020-08-14] MEDS: Colace 100 MG PO SCH ×2 (09:55→21:06)
[2020-08-14] MEDS ORDERED: Aplisol ID SCH (10:00)
[2020-08-14] MEDS: HUMALOG SQ PRN ×2 (11:48→16:51)
[2020-08-14] MEDS: Lantus Insulin SQ SCH (16:51)
[2020-08-14 19:44] VITALS: O2SAT 98
[2020-08-15] MEDS: TYLENOL EXTRA STRENGTH 500 MG PO SCH ×3 (05:52→21:29)
[2020-08-15] MEDS: SYNTHROID 75 MCG PO SCH (05:53)
[2020-08-15] MEDS: Amaryl 2 MG PO SCH ×2 (08:11→16:31)
[2020-08-15] MEDS: NORVASC 5 MG PO SCH (09:11)
[2020-08-15] MEDS: CLARITIN 10 MG PO SCH (09:11)
[2020-08-15] MEDS: Protonix 40MG Tablet PO SCH (09:11)
[2020-08-15] MEDS: Ocuvite Tablet PO SCH (09:11)
[2020-08-15] MEDS: Lotensin 10 MG PO SCH (09:11)
[2020-08-15] MEDS: PLAVIX 75 MG Tablet PO SCH (09:11)
[2020-08-15] MEDS: Colace 100 MG PO SCH ×2 (09:11→21:29)
[2020-08-15] MEDS: ENOXAPARIN SODIUM SQ SCH (09:12)
[2020-08-15] MEDS ORDERED: Aplisol ID SCH (10:00)
[2020-08-15] MEDS: HUMALOG SQ PRN ×3 (12:13→21:29)
[2020-08-15] MEDS: Lantus Insulin SQ SCH (16:31)
[2020-08-16] MEDS: TYLENOL EXTRA STRENGTH 500 MG PO SCH ×2 (05:02→13:34)
[2020-08-16] MEDS: SYNTHROID 75 MCG PO SCH (05:02)
[2020-08-16 05:34] LABS: ANION GAP 12.9 MEQ/L (5-15); BLOOD UREA NITROGEN 18 mg/dL (7-17); CHLORIDE 100 mmol/L (98-107); Calcium 9.2 mg/dL (8.4-10.2); Carbon Dioxide 23 mmol/L (22-30); Creatinine 1 0.82 mg/dL (0.52-1.04); EST GLOMERULAR FILTRATION RATE > 60.0 ML/MIN; Glucose 153 mg/dL (74-106); Potassium 4.2 mmol/L (3.5-5.1); SODIUM 132 mmol/L (137-145)
[2020-08-16 07:28] VITALS: BP 129/60; PULSE 72
[2020-08-16] MEDS: Protonix 40MG Tablet PO SCH (09:19)
[2020-08-16] MEDS: Colace 100 MG PO SCH (09:19)
[2020-08-16] MEDS: CLARITIN 10 MG PO SCH (09:19)
[2020-08-16] MEDS: Amaryl 2 MG PO SCH (09:19)
[2020-08-16] MEDS: NORVASC 5 MG PO SCH (09:19)
[2020-08-16] MEDS: PLAVIX 75 MG Tablet PO SCH (09:19)
[2020-08-16] MEDS: Lotensin 10 MG PO SCH (09:19)
[2020-08-16] MEDS: Ocuvite Tablet PO SCH (09:20)
[2020-08-16] MEDS: ENOXAPARIN SODIUM SQ SCH (09:20)
--- NOTE | 2020-08-16 11:38 | PCM.NOTE ---
Date and Time: 08/16/20 1137 Subjective Assessment: doing better - Review of Systems Constitutional: No Fever, No Chills Eyes: No Symptoms Ears, Nose, & Throat: No Symptoms Respiratory: No Cough, No Short Of Breath Cardiac: No Chest Pain, No Edema, No Syncope Abdominal/Gastrointestinal: No Abdominal Pain, No Nausea, No Vomiting, No Diarrhea Genitourinary Symptoms: No Dysuria Musculoskeletal: No Back Pain, No Neck Pain Skin: No Rash Neurological: No Dizziness, No Focal Weakness, No Sensory Changes Psychological: No Symptoms Endocrine: No Symptoms Hematologic/Lymphatic: No Symptoms Immunological/Allergic: No Symptoms Objective Exam General Appearance: no apparent distress, alert Neurologic Exam: alert, oriented x 3, cooperative, normal mood/affect, nml cerebellar function, sensation nml, No motor deficits Skin Exam: normal color, warm, dry Wound Assessment: Skin/Wound Assessment Wound/Incision Assessment Start: 08/03/20 17:19 Text: Status: Active Freq: Q6H Protocol: Document 08/16/20 07:00 RN (Rec: 08/16/20 07:45 RN [id number]) Wound/Incision Assessment Left Hand Wound Assessment Shift Assessment Wound Type hematoma Wound Stage Non Pressure Wound Drainage Amount None Comment healing, open to air Left Hip Wound Assessment Shift Assessment Wound Type Incision Wound Stage Non Pressure Wound Dressing Status Dry & Intact Drainage Amount None Drainage Odor None/Absent General Appearance Well Approximated Surrounding Tissue [place] Primary Dressing vaseline gauze Secondary Dressing Gauze Pads Comment dressings cdi Wound Photo Photo Taken No Eye Exam: PERRL, EOMI, eyes nml inspection Ears, Nose, Throat Exam: normal ENT inspection, pharynx normal, moist mucous membranes Neck Exam: normal inspection, non-tender, supple, full range of motion Respiratory Exam: normal breath sounds, lungs clear, No respiratory distress Cardiovascular Exam: regular rate/rhythm, normal heart sounds Gastrointestinal/Abdomen Exam: soft, No tenderness, No mass Extremity Exam: normal inspection, normal range of motion Back Exam: normal inspection, normal range of motion, No CVA tenderness, No vertebral tenderness Pelvic Exam: deferred Rectal Exam: deferred OBJECTIVE DATA Vital Signs: Vital Signs - 24 hr Temp Pulse Resp BP Pulse Ox 08/16/20 07:00 98.3 F 72 18 129/60 98 08/15/20 19:00 98.6 F 80 18 138/65 98 Pain Assessment - Last Documented Pain Intensity 0 Pain Scale [facility] Intake and Output: Intake & Output 08/13/20 08/14/20 08/15/20 08/16/20 11:59 11:59 11:59 11:59 Intake Total 1500 1780 1640 1840 Output Total 600 Balance 900 1780 1640 1840 Weight 59.6 kg Lab Results: Lab Results-Last 24 Hours 08/15/20 08/15/20 08/16/20 Range/Units 16:08 20:44 04:25 Sodium 132 L (137-145) mmol/L Potassium 4.2 (3.5-5.1) mmol/L Chloride 100 (98-107) mmol/L Carbon Dioxide 23 (22-30) mmol/L Anion Gap 12.9 (5-15) MEQ/L BUN 18 H (7-17) mg/dL Creatinine 0.82 (0.52-1.04) mg/dL Estimated GFR > 60.0 ML/MIN Glucose 153 H (74-106) mg/dL POC Glucometer 231 H 238 H (74 to 106) mg/dL Calcium 9.2 (8.4-10.2) mg/dL 08/16/20 08/16/20 Range/Units 07:12 10:56 Sodium (137-145) mmol/L Potassium (3.5-5.1) mmol/L Chloride (98-107) mmol/L Carbon Dioxide (22-30) mmol/L Anion Gap (5-15) MEQ/L BUN (7-17) mg/dL Creatinine (0.52-1.04) mg/dL Estimated GFR ML/MIN Glucose (74-106) mg/dL POC Glucometer 147 H 265 H (74 to 106) mg/dL Calcium (8.4-10.2) mg/dL Multi-Disciplinary Progress Notes: Multi-Disciplinary Progress Notes 08/16/20 11:04 Occupational Therapy Note by Mita Tello seen in her room for skilled OT treatment session this morning. She participated in seated grooming/hygiene tasks to wash her hair with shampoo cap and comb/style her hair with setup. OTR reviewed use of woodyard operator with Maria Isabel to doff socks followed by education and training on sock aid to facilitate increased independence with donning socks as bending to reach is difficult for her. She demo'd good carryover with MARK Phillip and OTR educated her on community resources at which to obtain. Maria Isabel seated in recliner with feet supported on pillow with call light, phone, and bedside table within reach. Initialized on 08/16/20 11:04 - END OF NOTE 08/16/20 09:31 Case Management Note by Belinda Cain S/W PATIENT THIS AM- SHE IS STILL PLANNING TO DC TO [facility] AT TIME OF DC Initialized on 08/16/20 09:31 - END OF NOTE 08/15/20 16:14 Occupational Therapy Note by Mita Tello Ms. Rodas seen this morning for skilled Occupational Therapy servies to address independence and safety with I/ADLs, AE/AD needs/recommendations/education, and functional strength and endurance impacting I/ADL performance. She was seated in recliner with feet supported on pillow, working on a word search. She was agreeable to treatment session this date. She began with functional mobility to bathroom with SBA followed by toileting with SBA and grooming/hygiene activity at sink with supervision. She then performed functional mobility to therapy room using FWW followed by participation in seated BUE strengthening ther ex's with theraband (green) and 1# dumbbells 1x10 reps with rest breaks as needed. OTR educated Mraia Isabel on rest breaks, s/s to cease exercises, and ways to perform exercises safely at home using household items. She verbalized understanding of education provided and demo'd good carryover of exercises. She performed functional mobility back to her room using FWW with SBA and was seated in her recliner with lunch tray on bedside table, phone, and call light within reach. Will continue to see patient for skilled OT services to address deficits identified above. Initialized on 08/15/20 16:14 - END OF NOTE 08/15/20 15:24 Physical Therapy Note by David Luna Morning session: Pt was up and using restroom with DEPUTY K 9 as PT entered. Pt agreed to amb with PT. Pt was able to amb 120' with RW and CGA. Minimal cuing needed for amb and transfers. Pt returned to seated with call light nearby. Afternoon session: Pt in chair and agreeable to PT. Pt was able to amb to PT room and complete mat exercises. Pt completed exercises well, but needed assist with SLR. Pt seems motivated to improve and gave great effort. Pt amb back to room and returned to chair with call light at side. No nsg staff was at desk except SHELDON Blount, who will pass message to nurse to elevate LE at night for a short time. Moderate edema noted, but pt notes that it is near normal. Initialized on 08/15/20 15:24 - END OF NOTE 08/15/20 14:23 Case Management Note by Maty Collins REFERRAL FAXED TO [facility] FOR EXTENDED REHAB STAY. PT/DAUGHTER BOTH WANT [facility] THEIR FIRST CHOICE OF FACILITIES, THEY BOTH UNDERSTAND THAT IT IS THEIR PREFERENCE AND THEY WANT TO STAY LOCAL. SPOKE WITH ENMANU[facility] AT [facility], AND THEY WILL BE READY FOR PT WHEN MD IS READY FOR DISCHARGE. Initialized on 08/15/20 14:23 - END OF NOTE Assessment/Plan (1) Debilitated patient Current Visit: Yes Status: Acute Assessment & Plan: Chief Complaint Diagnosis DECONDITIONING R/T L HIP REPAIR Allergies Allergy/AdvReac Type Severity Reaction Status Date / Time hydrocodone bitartrate Allergy Intermediate Nausea Verified 08/03/20 17:08 [From Vicodin] codeine Allergy Nausea Verified 08/03/20 17:08 nitrofurantoin Allergy Hives Verified 08/03/20 17:08 [From Macrodantin] oxycodone Allergy Verified 08/03/20 17:08 cephalexin [From Keflex] AdvReac Hives Verified 08/03/20 17:08 ciprofloxacin [From Cipro] AdvReac Hives Verified 08/03/20 17:08 Vital Signs (Last 24 hours) Temp Pulse Resp BP Pulse Ox 08/16/20 07:00 98.3 F 72 18 129/60 98 08/15/20 19:00 98.6 F 80 18 138/65 98 Home Medications Medication Instructions Recorded Confirmed Last Taken Type Acetaminophen [Acetaminophen Extra 1,000 mg PO Q8H 08/03/20 08/03/20 08/03/20 14:00 History Strength] Amlodipine Besylate/Benazepril 1 tab PO DAILY 08/03/20 08/03/20 Unknown History [Lotrel 10-40 mg Capsule] Cetirizine HCl 10 mg PO DAILY 08/03/20 08/03/20 Unknown History Enoxaparin Sodium [Lovenox] 30 mg SQ DAILY 08/03/20 08/03/20 08/03/20 09:20 History Ertapenem Sodium 1 gm [Invanz 1 1 g IV [id number] 08/03/20 08/03/20 08/03/20 History GM] Insulin Glargine [Lantus 24 unit SQ 1700 08/03/20 08/03/20 Unknown History Insulin] Insulin Lispro [Humalog] 0 unit SQ UD PRN 08/03/20 08/03/20 Unknown History Vits A,C,E/Lutein/Minerals 1 each PO DAILY 08/03/20 08/03/20 Unknown History [Ocuvite with Lutein Tablet] Current Medications Generic Name Dose Route Start Last Admin Trade Name Rolandoq PRN Reason Stop Dose Admin Acetaminophen 1,000 mg 08/03/20 22:00 08/16/20 05:02 Tylenol Extra Strength 500 Mg PO 09/02/20 21:59 1,000 mg Q8HT ASAEL Administration Amlodipine Besylate 10 mg 08/04/20 10:00 08/16/20 09:19 Norvasc 5 Mg PO 09/03/20 09:59 10 mg DAILY ASAEL Administration Benazepril HCl 40 mg 08/04/20 10:00 08/16/20 09:19 Lotensin 10 Mg PO 09/03/20 09:59 40 mg DAILY ASAEL Administration Clopidogrel Bisulfate 75 mg 08/04/20 10:00 08/16/20 09:19 Plavix 75 Mg Tablet PO 09/03/20 09:59 75 mg DAILY ASAEL Administration Docusate Sodium 100 mg 08/09/20 14:59 08/16/20 09:19 Colace 100 Mg PO 09/08/20 14:58 100 mg BID ASAEL Administration Enoxaparin Sodium 30 mg 08/04/20 10:00 08/16/20 09:20 Enoxaparin Sodium SQ 09/03/20 09:59 30 mg DAILY ASAEL Administration Glimepiride 2 mg 08/03/20 18:00 08/16/20 09:19 Amaryl 2 Mg PO 09/02/20 17:59 2 mg BIDWM ASAEL Administration Insulin Glargine 24 unit 08/03/20 18:00 08/15/20 16:31 Lantus Insulin SQ 09/02/20 17:59 24 unit 1700 ASAEL Administration Insulin Human Lispro 0 unit 08/07/20 09:28 08/15/20 21:29 Humalog SQ 09/06/20 09:27 2 unit UD PRN Administration HYPERGLYCEMIA Levothyroxine Sodium 75 mcg 08/04/20 06:00 08/16/20 05:02 Synthroid 75 Mcg PO 09/03/20 05:59 75 mcg 0600 ASAEL Administration Loratadine 10 mg 08/04/20 10:00 08/16/20 09:19 Claritin 10 Mg PO 09/03/20 09:59 10 mg DAILY ASAEL Administration Multivitamins/Minerals 1 tab 08/04/20 10:00 08/16/20 09:20 Ocuvite Tablet PO 09/03/20 09:59 1 tab DAILY ASAEL Administration Pantoprazole Sodium 40 mg 08/04/20 10:00 08/16/20 09:19 Protonix 40mg Tablet PO 09/03/20 09:59 40 mg DAILY ASAEL Administration Discontinued Medications Generic Name Dose Route Start Last Admin Trade Name Freq PRN Reason Stop Dose Admin Ertapenem 1 g/ Sodium Chloride 100 mls @ 200 mls/hr 08/04/20 10:00 08/06/20 09:26 IV 08/06/20 10:29 200 mls/hr DAILY ASAEL Administration Insulin Human Lispro 6 unit 08/03/20 18:00 08/07/20 20:05 Humalog SQ 09/02/20 17:59 Not Given TIDWMEALS ASAEL Insulin Human Lispro 0 unit 08/03/20 17:45 08/06/20 22:04 Humalog SQ 09/02/20 17:44 3 unit UD PRN Administration Tuberculin PPD 5 unit 08/03/20 10:00 08/04/20 12:56 Aplisol ID 08/03/20 10:01 Not Given DAILY ASAEL Tuberculin PPD 5 unit 08/04/20 10:00 08/04/20 10:45 Aplisol ID 08/04/20 10:01 5 unit DAILY ASAEL Administration Tuberculin PPD 5 unit 08/15/20 10:00 08/15/20 10:44 Aplisol ID 08/15/20 10:01 5 unit DAILY ASAEL Administration Intake & Output (Last 24 hours) 08/13/20 08/14/20 08/15/20 08/16/20 11:59 11:59 11:59 11:59 Intake Total 1500 1780 1640 1840 Output Total 600 Balance 900 1780 1640 1840 Weight 59.6 kg Laboratory Results (Last 24 hours) 08/16/20 08/16/20 08/16/20 10:56 07:12 04:25 Sodium 132 L Potassium 4.2 Chloride 100 Carbon Dioxide 23 Anion Gap 12.9 BUN 18 H Creatinine 0.82 Estimated GFR > 60.0 Glucose 153 H POC Glucometer 265 H 147 H Calcium 9.2 08/15/20 08/15/20 20:44 16:08 Sodium Potassium Chloride Carbon Dioxide Anion Gap BUN Creatinine Estimated GFR Glucose POC Glucometer 238 H 231 H Calcium Orders (Last 24 hours) Category Date Time Status BMP Q14D Lab 08/16/20 04:25 Completed POCT GLUCOSE Stat Lab 08/15/20 11:01 Completed POCT GLUCOSE Stat Lab 08/15/20 16:08 Completed POCT GLUCOSE Stat Lab 08/15/20 20:44 Completed POCT GLUCOSE Stat Lab 08/16/20 07:12 Completed POCT GLUCOSE Stat Lab 08/16/20 10:56 Completed Patient Care Notes (Last 24 hours) 08/16/20 11:04 Occupational Therapy Note by Mita Tello seen in her room for skilled OT treatment session this morning. She participated in seated grooming/hygiene tasks to wash her hair with shampoo cap and comb/style her hair with setup. OTR reviewed use of woodyard operator with Maria Isabel to doff socks followed by education and training on sock aid to facilitate increased independence with donning socks as bending to reach is difficult for her. She demo'd good carryover with MIN A and OTR educated her on community resources at which to obtain. Maria Isabel seated in recliner with feet supported on pillow with call light, phone, and bedside table within reach. Initialized on 08/16/20 11:04 - END OF NOTE 08/16/20 09:31 Case Management Note by Belinda Cain S/W PATIENT THIS AM- SHE IS STILL PLANNING TO DC TO [facility] AT TIME OF DC Initialized on 08/16/20 09:31 - END OF NOTE 08/15/20 16:14 Occupational Therapy Note by Mita Tello Ms. Rodas seen this morning for skilled Occupational Therapy servies to address independence and safety with I/ADLs, AE/AD needs/recommendations/education, and functional strength and endurance impacting I/ADL performance. She was seated in recliner with feet supported on pillow, working on a word search. She was agreeable to treatment session this date. She began with functional mobility to bathroom with SBA followed by toileting with SBA and grooming/hygiene activity at sink with supervision. She then performed functional mobility to therapy room using FWW followed by participation in seated BUE strengthening ther ex's with theraband (green) and 1# dumbbells 1x10 reps with rest breaks as needed. OTR educated Maria Isabel on rest breaks, s/s to cease exercises, and ways to perform exercises safely at home using household items. She verbalized understanding of education provided and demo'd good carryover of exercises. She performed functional mobility back to her room using FWW with SBA and was seated in her recliner with lunch tray on bedside table, phone, and call light within reach. Will continue to see patient for skilled OT services to address deficits identified above. Initialized on 08/15/20 16:14 - END OF NOTE 08/15/20 15:24 Physical Therapy Note by David Luna Morning session: Pt was up and using restroom with DEPUTY K 9 as PT entered. Pt agreed to amb with PT. Pt was able to amb 120' with RW and CGA. Minimal cuing needed for amb and transfers. Pt returned to seated with call light nearby. Afternoon session: Pt in chair and agreeable to PT. Pt was able to amb to PT room and complete mat exercises. Pt completed exercises well, but needed assist with SLR. Pt seems motivated to improve and gave great effort. Pt amb back to room and returned to chair with call light at side. No nsg staff was at desk except SHELDON Blount, who will pass message to nurse to elevate LE at night for a short time. Moderate edema noted, but pt notes that it is near normal. Initialized on 08/15/20 15:24 - END OF NOTE 08/15/20 14:23 Case Management Note by Maty Collins REFERRAL FAXED TO [facility] FOR EXTENDED REHAB STAY. PT/DAUGHTER BOTH WANT [facility] THEIR FIRST CHOICE OF FACILITIES, THEY BOTH UNDERSTAND THAT IT IS THEIR PREFERENCE AND THEY WANT TO STAY LOCAL. SPOKE WITH ENMANUEL AT [facility], AND THEY WILL BE READY FOR PT WHEN MD IS READY FOR DISCHARGE. Initialized on 08/15/20 14:23 - END OF NOTE Code(s): R53.81 - OTHER MALAISE (2) Hip fracture Current Visit: Yes Status: Acute Qualifiers: Encounter type: sequela Code(s): S72.009A - FRACTURE OF UNSP PART OF NECK OF UNSP FEMUR, INIT
[2020-08-16] MEDS: HUMALOG SQ PRN (11:48)
== END 2020-08-16 13:36 | DRG 561 ==
LOC: MED SURG 08-03 16:20
PROVIDERS: ADMIT General Practice; ATTEND General Practice
DX: S72.002D Fracture of unspecified part of neck of left femur, subsequent encounter for closed fracture with routine healing (principal); R53.81 Other malaise; Z96.642 Presence of left artificial hip joint; E11.9 Type 2 diabetes mellitus without complications; I10 Essential (primary) hypertension; Z79.899 Other long term (current) drug therapy; Z79.01 Long term (current) use of anticoagulants
CPT/HCPCS: 36415; 80048; 82947; 83036; 94760; J1335; J1650; J1817; 97110-GP; A9270-GY

== ENCOUNTER 2020-09-29 12:49 | Observation (INO) | payer MEDICARE, OTHER ==
--- NOTE | 2020-09-29 13:21 | ERPHSYRPT ---
- History of Present Illness Time Seen by Provider: 09/29/20 13:15 Source: patient, family Exam Limitations: clinical condition Physician History: This is an 89-year-old white female has a history of recurrent urinary tract infections, insulin-dependent diabetes, recent diagnosis of lung cancer and hypertension. She is taking Plavix. Patient was in the correction r ehabilitating from a hip fracture and repair back in July 2020. She has been home for 3 weeks and doing fairly well. In the last 2 to 3 days she has had weakness and seemed fatigued. This morning, therapist felt that the patient was confused. Patient denies any head injury. She has no headaches. She has no chest pain she is not short of breath. She has no abdominal pain. Patient is currently taking Cipro for treatment of urinary tract infection. Timing/Duration: day(s) Severity: mild (Mild to moderate) Character of Deficits: none Deficits: no difficulties Baseline/Normal Cognition: alert oriented x 3 Current Cognition: alert but confused Baseline Gait: walks only w/assistance Associated Symptoms: confusion, No fever, No chills, No loss of consciousness Allergies/Adverse Reactions: hydrocodone bitartrate [From Vicodin] Allergy (Intermediate, Verified 09/29/20 13:35) Nausea codeine Allergy (Verified 09/29/20 13:35) Nausea nitrofurantoin [From Macrodantin] Allergy (Verified 09/29/20 13:35) Hives oxycodone Allergy (Verified 09/29/20 13:35) cephalexin [From Keflex] Adverse Reaction (Verified 09/29/20 13:35) Hives ciprofloxacin [From Cipro] Adverse Reaction (Verified 09/29/20 13:35) Hives Home Medications: Clopidogrel Bisulfate 75 mg [PLAVIX 75 MG Tablet] 75 mg PO DAILY 10/22/17 [History] Glimepiride 2 mg [Amaryl 2 MG] 2 mg PO BID 10/22/17 [History] Insulin Aspart [Novolog Flexpen] 6 unit SQ TIDWMEALS 10/22/17 [History] Levothyroxine Sodium 75 Mcg [Synthroid 75 Mcg] 75 mcg PO 0600 10/22/17 [History] Omeprazole 40 mg PO DAILY 10/22/17 [History] Acetaminophen [Acetaminophen Extra Strength] 1,000 mg PO Q8H 08/03/20 [History] Amlodipine Besylate/Benazepril [Lotrel 10-40 mg Capsule] 1 tab PO DAILY 08/03/20 [History] Cetirizine HCl 10 mg PO DAILY 08/03/20 [History] Insulin Glargine [Lantus Insulin] 24 unit SQ 1700 08/03/20 [History] Insulin Lispro [Humalog] 0 unit SQ UD PRN 08/03/20 [History] Vits A,C,E/Lutein/Minerals [Ocuvite with Lutein Tablet] 1 each PO DAILY 08/03/20 [History] Travel Risk - International Travel Have you traveled outside of the country in past 3 weeks: No - Coronavirus Screening Are you exhibiting any of the following symptoms?: No Close contact with a COVID-19 positive Pt in past 14-21 Days: No - Vaccine Status Have you recieved a Covid-19 vaccination: No - Review of Systems Constitutional: No Symptoms Eyes: No Symptoms Ears, Nose, & Throat: No Symptoms Respiratory: No Symptoms Cardiac: No Symptoms Abdominal/Gastrointestinal: No Symptoms Genitourinary Symptoms: No Symptoms Musculoskeletal: No Symptoms Skin: No Symptoms Neurological: Other (Confusion) Psychological: No Symptoms Endocrine: No Symptoms Hematologic/Lymphatic: No Symptoms Immunological/Allergic: No Symptoms All Other Systems: Reviewed and Negative - Past Medical History Pertinent Past Medical History: Yes Neurological History: No Pertinent History ENT History: No Pertinent History Cardiac History: Hypertension, Other Respiratory History: Bronchitis Endocrine Medical History: Diabetes Type II, Other Musculoskeletal History: Other GI Medical History: No Pertinent History History: Other Psycho-Social History: No Pertinent History Female Reproductive Disorders: No Pertinent History Other Medical History: GERD, Spondylosis, Cellulitis (LLE), cataract removal, Bladder surgery, Microvascular decompression, Red's Disease - Past Surgical History Past Surgical History: Yes Neuro Surgical History: No Pertinent History Cardiac: No Pertinent History Respiratory: No Pertinent History Gastrointestinal: No Pertinent History Genitourinary: No Pertinent History Musculoskeletal: Orthopedic Surgery Female Surgical History: No Pertinent History Other Surgical History: bladder sling, micro vascular decompression to head after fall on the ice,Cataract removed w/ lens implant rodrigo eye, l hip orif - Social History Smoking Status: Former smoker Exposure to second hand smoke: No Drug Use: none - Nursing Vital Signs Nursing Vital Signs: Initial Vital Signs Temperature 97.0 F 09/29/20 13:09 Pulse Rate 67 09/29/20 13:09 Blood Pressure 141/62 09/29/20 13:09 O2 Sat by Pulse Oximetry 96 09/29/20 13:09 Pain Scale Pain Intensity 0 - Wyatt Coma Scale Best Eye Response (Wyatt): (4) open spontaneously Best Verbal Response (Keven): (4) confused conversation Best Motor Response (Wyatt): (6) obeys commands Wyatt Total: 14 - Physical Exam General Appearance: no apparent distress, alert, anxiety, thin Eye Exam: bilateral eye: normal inspection, PERRL, EOMI Ears, Nose, Throat Exam: normal ENT inspection, moist mucous membranes Neck Exam: normal inspection, non-tender, supple, full range of motion Respiratory: normal breath sounds, lungs clear, airway intact, No chest tenderness, No respiratory distress Cardiovascular: regular rate/rhythm, normal heart sounds, normal peripheral pulses Gastrointestinal: soft, normal bowel sounds, No tenderness Pelvic Exam: not done Rectal Exam: not done Back Exam: normal inspection, normal range of motion, No CVA tenderness, No vertebral tenderness Extremity Exam: normal inspection, normal range of motion, pelvis stable Mental Status: alert, oriented x 3, cooperative senior geologist Exam: normal hearing, normal speech, PERRL, tongue midline Motor/Sensory: no motor deficit, no sensory deficit Skin Exam: normal color, warm, dry SpO2 Interpretation: normal O2 Delivery: Room Air - Course Nursing assessment & vital signs reviewed: Yes Ordered Tests: Active Orders 24 hr Category Date Time Status IV Insertion STAT Care 09/29/20 13:30 Active NPO (ED) STAT Care 09/29/20 13:30 Active HEAD WITHOUT CONTRAST [CT] Stat Exams 09/29/20 13:30 Taken BLOOD CULTURE Stat Lab 09/29/20 14:20 Received CBC W DIFF Stat Lab 09/29/20 14:00 Completed CMP Stat Lab 09/29/20 14:00 Completed CULTURE,URINE Stat Lab 09/29/20 13:45 Received Lactic Acid Stat Lab 09/29/20 13:30 Completed UA W/RFX UR CULTURE Stat Lab 09/29/20 13:45 Completed Transfer Order Routine Transfer 09/29/20 Ordered Medication Summary Generic Name Dose Route Start Last Admin Trade Name Freq PRN Reason Stop Dose Admin Sodium Chloride 1,000 mls @ 100 mls/hr 09/29/20 13:30 09/29/20 14:25 Sodium Chloride 0.9% 1000 Ml IV 10/29/20 13:29 100 mls/hr .Q10H ASAEL Administration Discontinued Medications Generic Name Dose Route Start Last Admin Trade Name Rolandoq PRN Reason Stop Dose Admin Meropenem 1 g/ Sodium Chloride 100 mls @ 200 mls/hr 09/29/20 14:26 09/29/20 15:00 IV 09/29/20 14:55 Infused STAT STA Infusion Sodium Chloride Confirm 09/29/20 14:28 Sodium Chloride 100ml Mini-Bag Plus Administered 09/29/20 14:29 Dose 100 mls @ ud IV .STK-MED ONE Meropenem Confirm 09/29/20 14:28 Merrem 1 Gm Administered 09/29/20 14:29 Dose 1 g IV .STK-MED ONE Lab/Rad Data: Laboratory Result Diagrams 09/29/20 14:00 09/29/20 14:00 Laboratory Results 09/29/20 09/29/20 09/29/20 Range/Units 14:00 14:00 13:45 WBC 8.8 (4.0-10.5) K/mm3 RBC 3.70 L (4.1-5.4) M/mm3 Hgb 11.1 L (12.0-16.0) gm/dl Hct 34.8 L (35-47) % MCV 94.1 (78-100) fl MCH 30.0 (26-32) pg MCHC 31.9 L (32-36) g/dl RDW 14.2 H (11.5-14.0) % Plt Count 432 (150-450) K/mm3 MPV 9.4 (7.5-11.0) fl Gran % 86.8 H (36.0-66.0) % Eos # (Auto) 0 (0-0.5) Absolute Lymphs (auto) 0.63 L (1.0-4.6) Absolute Monos (auto) 0.54 (0.0-1.3) Lymphocytes % 7.1 L (24.0-44.0) % Monocytes % 6.1 (0.0-12.0) % Eosinophils % 0.0 (0.00-5.0) % Basophils % 0.0 (0.0-0.4) % Absolute Granulocytes 7.65 H (1.4-6.9) Basophils # 0 (0-0.4) Sodium 129 L (137-145) mmol/L Potassium 4.9 (3.5-5.1) mmol/L Chloride 96 L (98-107) mmol/L Carbon Dioxide 22 (22-30) mmol/L Anion Gap 16.5 H (5-15) MEQ/L BUN 21 H (7-17) mg/dL Creatinine 0.76 (0.52-1.04) mg/dL Estimated GFR > 60.0 ML/MIN Glucose 251 H (74-106) mg/dL Lactic Acid (0.4-2.0) Calcium 9.5 (8.4-10.2) mg/dL Total Bilirubin 0.40 (0.2-1.3) mg/dL AST 31 (14-36) U/L ALT 20 (0-35) U/L Alkaline Phosphatase 136 H (38-126) U/L Serum Total Protein 7.6 (6.3-8.2) g/dL Albumin 4.0 (3.5-5.0) g/dL Urine Color YELLOW (YELLOW) Urine Appearance SLIGHTLY CLOUDY (CLEAR) Urine pH 5.0 (5-6) Ur Specific [place] 1.018 (1.005-1.025) Urine Protein 30 (Negative) Urine Ketones SMALL (NEGATIVE) Urine Blood NEGATIVE (0-5) Adrian/ul Urine Nitrite POSITIVE (NEGATIVE) Urine Bilirubin NEGATIVE (NEGATIVE) Urine Urobilinogen 2 (0-1) mg/dL Ur Leukocyte Esterase MODERATE (NEGATIVE) Urine WBC (Auto) >100 (0-5) /HPF Urine RBC (Auto) NONE (0-2) /HPF U Epithel Cells (Auto) NONE (FEW) /HPF Urine Bacteria (Auto) PACKED (NEGATIVE) /HPF Urine Mucus (Auto) SLIGHT (NEGATIVE) /HPF Urine Culture Reflexed ORDERED SEPARATELY (NO) Urine Glucose 150 (NEGATIVE) mg/dL 09/29/20 Range/Units 13:30 WBC (4.0-10.5) K/mm3 RBC (4.1-5.4) M/mm3 Hgb (12.0-16.0) gm/dl Hct (35-47) % MCV (78-100) fl MCH (26-32) pg MCHC (32-36) g/dl RDW (11.5-14.0) % Plt Count (150-450) K/mm3 MPV (7.5-11.0) fl Gran % (36.0-66.0) % Eos # (Auto) (0-0.5) Absolute Lymphs (auto) (1.0-4.6) Absolute Monos (auto) (0.0-1.3) Lymphocytes % (24.0-44.0) % Monocytes % (0.0-12.0) % Eosinophils % (0.00-5.0) % Basophils % (0.0-0.4) % Absolute Granulocytes (1.4-6.9) Basophils # (0-0.4) Sodium (137-145) mmol/L Potassium (3.5-5.1) mmol/L Chloride (98-107) mmol/L Carbon Dioxide (22-30) mmol/L Anion Gap (5-15) MEQ/L BUN (7-17) mg/dL Creatinine (0.52-1.04) mg/dL Estimated GFR ML/MIN Glucose (74-106) mg/dL Lactic Acid 0.9 (0.4-2.0) Calcium (8.4-10.2) mg/dL Total Bilirubin (0.2-1.3) mg/dL AST (14-36) U/L ALT (0-35) U/L Alkaline Phosphatase (38-126) U/L Serum Total Protein (6.3-8.2) g/dL Albumin (3.5-5.0) g/dL Urine Color (YELLOW) Urine Appearance (CLEAR) Urine pH (5-6) Ur Specific [place] (1.005-1.025) Urine Protein (Negative) Urine Ketones (NEGATIVE) Urine Blood (0-5) Adrian/ul Urine Nitrite (NEGATIVE) Urine Bilirubin (NEGATIVE) Urine Urobilinogen (0-1) mg/dL Ur Leukocyte Esterase (NEGATIVE) Urine WBC (Auto) (0-5) /HPF Urine RBC (Auto) (0-2) /HPF U Epithel Cells (Auto) (FEW) /HPF Urine Bacteria (Auto) (NEGATIVE) /HPF Urine Mucus (Auto) (NEGATIVE) /HPF Urine Culture Reflexed (NO) Urine Glucose (NEGATIVE) mg/dL - Progress Progress: improved, re-examined Progress Note: 09/29/20 16:10 CAT scan of the head in this patient shows 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 No evidence of any acute hemorrhage or acute infarct. There is no midline shift. However, there is a left parietal lobe heterogeneous appearing mass posteriorly measuring 4.9 x 3.2 x 4.8 cm. There is surrounding vasogenic edema. I reviewed the results of this CAT scan with the patient, her daughter and Dr. Paez. 09/29/20 16:19 I opted for Merrem antibiotic. The patient has a true allergic reaction to penicillin and Keflex as well as cora quinolones. Patient has been on Merrem before and had no problems with this antibiotic. Discussed with : Macarena Counseled pt/family regarding: lab results, diagnosis, rad results - Departure Departure Disposition: Observation Clinical Impression: Urinary tract infection, Mild dehydration, Intracranial mass Condition: Stable Critical Care Time: No Referrals: TIFFANIE LENNON MD [Primary Care Provider] -
[2020-09-29] MEDS ORDERED: Sodium Chloride 0.9% 1000 ML 1,000 ML IV SCH (13:30)
[2020-09-29 13:51] LABS: Appearance SLIGHTLY CLOUDY (CLEAR); Bacteria PACKED /HPF (NEGATIVE); Bilirubin NEGATIVE (NEGATIVE); Blood NEGATIVE Ery/ul (0-5); Glucose 150 mg/dL (NEGATIVE); Ketones SMALL (NEGATIVE); Leukocyte Esterase MODERATE (NEGATIVE); Mucus SLIGHT /HPF (NEGATIVE); Nitrite POSITIVE (NEGATIVE); Protein,Urine Dip 30 (Negative); Specific Gravity 1.018 (1.005-1.025); Urobilinogen 2 mg/dL (0-1); WBC >100 /HPF (0-5)
[2020-09-29] MEDS ORDERED: Sodium Chloride 0.9% 1000 ML 1,000 ML ONE (14:23)
[2020-09-29 14:24] LABS: Absolute Neutrophil Ct (ANC) 7.65 (1.4-6.9); Basophil (Absolute #) 0 (0-0.4); Eosinophil (Absolute #) 0 (0-0.5); Hematocrit 34.8 % (35-47); Hemoglobin 11.1 gm/dl (12.0-16.0); Lymphocyte (Absolute #) 0.63 (1.0-4.6); Lymphocytes % 7.1 % (24.0-44.0); Mean Cell Volume 94.1 fl (78-100); Mean Corpuscular Hgb Concent. 31.9 g/dl (32-36); Mean Platelet Volume 9.4 fl (7.5-11.0); Monocyte (Absolute #) 0.54 (0.0-1.3); Monocytes % 6.1 % (0.0-12.0); Neutrophil % 86.8 % (36.0-66.0); Platelet Count 432 K/mm3 (150-450); Red Cell Distribution Width 14.2 % (11.5-14.0); White Blood Count 8.8 K/mm3 (4.0-10.5)
[2020-09-29] MEDS ORDERED: Merrem 1 GM 1 G in Sodium Chloride 100ML MINI-BAG PLUS 100 ML IV STA (14:26)
[2020-09-29] MEDS ORDERED: Merrem 1 GM IV ONE (14:28)
[2020-09-29] MEDS ORDERED: Sodium Chloride 100ML MINI-BAG PLUS 100 ML IV ONE ×2 (14:28→22:04)
[2020-09-29 14:29] LABS: ALKALINE PHOSPHATASE 136 U/L (38-126); ANION GAP 16.5 MEQ/L (5-15); BLOOD UREA NITROGEN 21 mg/dL (7-17); CHLORIDE 96 mmol/L (98-107); Calcium 9.5 mg/dL (8.4-10.2); Carbon Dioxide 22 mmol/L (22-30); Creatinine 1 0.76 mg/dL (0.52-1.04); EST GLOMERULAR FILTRATION RATE > 60.0 ML/MIN; Glucose 251 mg/dL (74-106); Potassium 4.9 mmol/L (3.5-5.1); SGOT/AST 31 U/L (14-36); SGPT/ALT 20 U/L (0-35); SODIUM 129 mmol/L (137-145); Total Protein 7.6 g/dL (6.3-8.2)
[2020-09-29 17:20] LABS: INFLUENZA A NEGATIVE (NEGATIVE); INFLUENZA B NEGATIVE (NEGATIVE); RESPIRATORY SYNCTIAL VIRUS NEGATIVE (Negative)
[2020-09-29] MEDS ORDERED: Zofran 4 MG/2 ML VIAL IV PRN (18:43)
[2020-09-29] MEDS ORDERED: TYLENOL 325 MG PO PRN (18:43)
[2020-09-29] MEDS ORDERED: HUMALOG SQ PRN (19:06)
[2020-09-29] MEDS: Sodium Chloride 0.9% 1000 ML 1,000 ML IV SCH (20:37)
[2020-09-29] MEDS ORDERED: MERREM 500MG IV ONE ×2 (22:02→22:03)
[2020-09-29] MEDS: MERREM 500MG 500 MG in Sodium Chloride 100ML MINI-BAG PLUS 100 ML IV SCH (22:13)
[2020-09-30] MEDS ORDERED: MERREM 500MG IV ONE (05:02)
[2020-09-30] MEDS ORDERED: Sodium Chloride 100ML MINI-BAG PLUS 100 ML IV ONE (05:03)
[2020-09-30] MEDS: MERREM 500MG 500 MG in Sodium Chloride 100ML MINI-BAG PLUS 100 ML IV SCH ×3 (05:06→22:11)
[2020-09-30 06:41] LABS: Absolute Neutrophil Ct (ANC) 4.28 (1.4-6.9); Basophil (Absolute #) 0 (0-0.4); Eosinophil (Absolute #) 0 (0-0.5); Hematocrit 34.5 % (35-47); Hemoglobin 10.8 gm/dl (12.0-16.0); Lymphocytes % 15.5 % (24.0-44.0); Mean Cell Volume 94.5 fl (78-100); Mean Corpuscular Hemoglobin 29.6 pg (26-32); Mean Corpuscular Hgb Concent. 31.3 g/dl (32-36); Mean Platelet Volume 9.4 fl (7.5-11.0); Monocyte (Absolute #) 0.63 (0.0-1.3); Monocytes % 10.8 % (0.0-12.0); Neutrophil % 73.7 % (36.0-66.0); Platelet Count 433 K/mm3 (150-450); Red Blood Count 3.65 M/mm3 (4.1-5.4); Red Cell Distribution Width 14.3 % (11.5-14.0); White Blood Count 5.8 K/mm3 (4.0-10.5)
[2020-09-30 06:52] LABS: ANION GAP 11.3 MEQ/L (5-15); BLOOD UREA NITROGEN 16 mg/dL (7-17); CHLORIDE 101 mmol/L (98-107); Calcium 9.1 mg/dL (8.4-10.2); Carbon Dioxide 23 mmol/L (22-30); EST GLOMERULAR FILTRATION RATE > 60.0 ML/MIN; Glucose 148 mg/dL (74-106); Potassium 4.4 mmol/L (3.5-5.1); SODIUM 131 mmol/L (137-145)
[2020-09-30] MEDS ORDERED: Naprosyn 500 MG PO PRN (10:26)
[2020-09-30] MEDS ORDERED: Colace 100 MG PO PRN (10:26)
[2020-09-30] MEDS ORDERED: INSULIN ASPART 6 UNIT SQ SCH (12:00)
[2020-09-30] MEDS: HUMALOG SQ SCH ×2 (12:14→17:49)
[2020-09-30] MEDS: PLAVIX 75 MG Tablet PO SCH (12:15)
[2020-09-30] MEDS: Protonix 40MG Tablet PO SCH (12:15)
[2020-09-30] MEDS: CLARITIN 10 MG PO SCH (12:15)
[2020-09-30] MEDS: Ocuvite Tablet PO SCH (12:15)
[2020-09-30] MEDS: NORVASC 5 MG PO SCH (12:15)
[2020-09-30] MEDS: Amaryl 2 MG PO SCH ×2 (12:16→17:47)
[2020-09-30] MEDS: Lotensin 10 MG PO SCH (12:16)
[2020-09-30] MEDS: SYNTHROID 75 MCG PO SCH (12:18)
[2020-09-30] MEDS: TYLENOL EXTRA STRENGTH 500 MG PO SCH ×2 (14:29→22:11)
[2020-09-30] MEDS ORDERED: Lantus Insulin SQ SCH (17:00)
[2020-09-30] MEDS: Sodium Chloride 0.9% 1000 ML 1,000 ML IV SCH (19:48)
[2020-10-01] MEDS: MERREM 500MG 500 MG in Sodium Chloride 100ML MINI-BAG PLUS 100 ML IV SCH (05:08)
[2020-10-01] MEDS: SYNTHROID 75 MCG PO SCH (05:09)
[2020-10-01] MEDS: TYLENOL EXTRA STRENGTH 500 MG PO SCH ×2 (05:09→14:41)
[2020-10-01] MEDS: HUMALOG SQ SCH ×2 (08:44→13:11)
[2020-10-01] MEDS: Amaryl 2 MG PO SCH (08:44)
[2020-10-01] MEDS ORDERED: LUTEIN PO SCH (10:00)
[2020-10-01] MEDS ORDERED: VITS A C E PO SCH (10:00)
[2020-10-01] MEDS ORDERED: NON-FORMULARY ITEM (Omeprazole [Omeprazole] 40 MG) PO SCH (10:00)
[2020-10-01] MEDS ORDERED: MINERALS PO SCH (10:00)
[2020-10-01] MEDS ORDERED: BENAZEPRIL PO SCH (10:00)
[2020-10-01] MEDS ORDERED: AMLODIPINE BESYLATE PO SCH (10:00)
[2020-10-01] MEDS ORDERED: NON-FORMULARY ITEM (Cetirizine Hcl [Cetirizine Hcl] 10 MG) PO SCH (10:00)
[2020-10-01] MEDS ORDERED: CEFTIN 500 MG PO SCH (10:45)
[2020-10-01] MEDS: Protonix 40MG Tablet PO SCH (11:24)
[2020-10-01] MEDS: NORVASC 5 MG PO SCH (11:24)
[2020-10-01] MEDS: CLARITIN 10 MG PO SCH (11:24)
[2020-10-01] MEDS: Lotensin 10 MG PO SCH (11:24)
[2020-10-01] MEDS: Ocuvite Tablet PO SCH (11:24)
[2020-10-01] MEDS: PLAVIX 75 MG Tablet PO SCH (11:24)
[2020-10-01 16:03] VITALS: BP 148/65; PULSE 80; O2SAT 99
--- NOTE | 2020-10-02 07:48 | XRAY ---
Indication: Confusion. Multiple contiguous axial images obtained through the head without contrast. Comparison: None Age-appropriate global atrophy, mild periventricular degenerative micro-ischemia bilaterally, and remote lacunar infarct right external capsule. Left parietal lobe near the vertex demonstrates a heterogeneous appearing mass posteriorly measuring at least 4.9 x 3.2 x 4.8 cm with mild surrounding vasogenic edema slightly effacing the occipital horn of the left lateral ventricle. No midline shifting or acute hemorrhage. Fourth ventricle is midline without hydrocephalus. Bony calvarium demonstrates right occipital craniectomy. Visualized paranasal sinuses are clear. Partial opacification of the inferior left mastoid air cells presumed inflammatory. Impression: 1. Left posterior parietal heterogeneous mass as detailed and prior right occipital craniectomy. Outside comparison studies recommended if available. If not, MRI brain with contrast exam may yield further information. 2. Normal aging brain including atrophy and degenerative micro-ischemia. Small right external capsule lacunar infarct. 3. Partial opacification left mastoid air cells presumed inflammatory.
--- NOTE | 2020-10-13 21:18 | PCM.SSS ---
History of Present Illness - Chief Complaint Chief Complaint: Urinary tract infection Date: 10/01/20 History of Present Illness: is a 89 year old female. Presented to ER with some possible increase in confusion today. - Review of Systems Constitutional: Fatigue, No Fever, No Chills Eyes: No Symptoms Ears, Nose, & Throat: No Symptoms Respiratory: No Cough, No Short Of Breath Cardiac: No Chest Pain, No Edema, No Syncope Abdominal/Gastrointestinal: No Abdominal Pain, No Nausea, No Vomiting, No Diarrhea Genitourinary Symptoms: No Dysuria Musculoskeletal: No Back Pain, No Neck Pain Skin: No Rash Neurological: No Dizziness, No Focal Weakness, No Sensory Changes Psychological: No Symptoms Endocrine: No Symptoms Hematologic/Lymphatic: No Symptoms Immunological/Allergic: No Symptoms Medications & Allergies Home Medications: Home Medication List Clopidogrel Bisulfate 75 mg [PLAVIX 75 MG Tablet] 75 mg PO DAILY 10/22/17 [History Confirmed 09/29/20] Glimepiride 2 mg [Amaryl 2 MG] 2 mg PO BID 10/22/17 [History Confirmed 09/29/20] Insulin Aspart [Novolog Flexpen] 6 unit SQ TIDWMEALS 10/22/17 [History Confirmed 09/29/20] Levothyroxine Sodium 75 Mcg [Synthroid 75 Mcg] 75 mcg PO 0600 10/22/17 [History Confirmed 09/29/20] Omeprazole 40 mg PO DAILY 10/22/17 [History Confirmed 09/29/20] Acetaminophen [Acetaminophen Extra Strength] 1,000 mg PO Q8H 08/03/20 [History Confirmed 09/29/20] Amlodipine Besylate/Benazepril [Lotrel 10-40 mg Capsule] 1 tab PO DAILY 08/03/20 [History Confirmed 09/29/20] Cetirizine HCl 10 mg PO DAILY 08/03/20 [History Confirmed 09/29/20] Insulin Glargine [Lantus Insulin] 8 unit SQ 1700 08/03/20 [History Confirmed 09/29/20] Vits A,C,E/Lutein/Minerals [Ocuvite with Lutein Tablet] 1 each PO DAILY 08/03/20 [History Confirmed 09/29/20] Docusate Sodium 100 mg [Colace 100 MG] 100 mg PO Q12H PRN PRN 09/29/20 [History Confirmed 09/29/20] Naproxen 500 mg [Naprosyn 500 MG] 500 mg PO BIDPRN PRN 09/29/20 [History Confirmed 09/29/20] Cefuroxime Axetil 500 mg [Ceftin 500 mg] 500 mg PO BID 10 Days #20 tablet 10/01/20 [Rx] Allergies/Adverse Reactions: Allergies Allergy/AdvReac Type Severity Reaction Status Date / Time hydrocodone bitartrate Allergy Intermediate Nausea Verified 09/29/20 19:00 [From Vicodin] codeine Allergy Nausea Verified 09/29/20 19:00 nitrofurantoin Allergy Hives Verified 09/29/20 19:00 [From Macrodantin] oxycodone Allergy Verified 09/29/20 19:00 cephalexin [From Keflex] AdvReac Hives Verified 09/29/20 19:00 ciprofloxacin [From Cipro] AdvReac Hives Verified 09/29/20 19:00 - Past Medical History Past Medical History: Yes Neurological History: Peripheral Neuropathy ENT History: Macular Degeneration Cardiac History: Hypertension, Other Respiratory History: Bronchitis Endocrine Medical History: Diabetes Type II, Other Musculoskelatal History: Other GI Medical History: GERD History: Other Pyscho-Social History: No Pertinent History Reproductive Disorders: No Pertinent History Comment: GERD, Spondylosis, Cellulitis (LLE), cataract removal, Bladder surgery, Microvascular decompression, Red's Disease - Female History Are you now?: No - Past Surgical History Past Surgical History: Yes Neuro Surgical History: No Pertinent History Cardiac History: No Pertinent History Respiratory Surgery: No Pertinent History GI Surgical History: No Pertinent History Genitourinary Surgical Hx: No Pertinent History Musculskeletal Surgical Hx: Orthopedic Surgery Female Surgical History: No Pertinent History Other Surgical History: bladder sling, micro vascular decompression to head after fall on the ice,Cataract removed w/ lens implant rodrigo eye, l hip orif - Social History Smoking Status: Former smoker How long have you smoked: 65 years Exposure to second hand smoke: No Alcohol: None Drug Use: none - Physical Exam General Appearance: no apparent distress, alert Neurologic Exam: alert, oriented x 3, cooperative, normal mood/affect, nml cerebellar function, nml station & gait, sensation nml, No motor deficits Eye Exam: PERRL/EOMI, eyes nml inspection Ears, Nose, Throat Exam: normal ENT inspection, TMs normal, pharynx normal, moist mucous membranes Neck Exam: normal inspection, non-tender, supple, full range of motion Respiratory Exam: normal breath sounds, lungs clear, No respiratory distress Cardiovascular Exam: regular rate/rhythm, normal heart sounds, normal peripheral pulses Gastrointestinal/Abdomen Exam: soft, normal bowel sounds, No tenderness, No mass Back Exam: normal inspection, normal range of motion, No CVA tenderness, No vertebral tenderness Extremity Exam: normal inspection, normal range of motion, pelvis stable Skin Exam: normal color, warm, dry, No rash Lymphatic Exam: No adenopathy Results - Labs Lab/Micro Results: Microbiology 09/29/20 14:20 Blood Culture Gram Stain - Final Blood Not Reportable Blood Culture - Final NO GROWTH 09/29/20 14:00 Blood Culture Gram Stain - Final Blood Not Reportable Blood Culture - Final Not Reportable 09/29/20 13:45 Urine Culture - Final Catherized Escherichia Coli Assessment/Plan (1) Urinary tract infection Status: Acute Code(s): N39.0 - URINARY TRACT INFECTION, SITE NOT SPECIFIED Hospital Summary - Hospital Course Hospital Course: pt. admitted for UTI and reports of possible confusion, this am, the patient not ed to be sharp alert and oriented X3, Pt. stable for discharge. - Vitals & Intake/Output Vital Signs: Vital Signs Temperature 98.3 F 10/01/20 16:00 Pulse Rate 80 10/01/20 16:00 Respiratory Rate 16 10/01/20 12:00 Blood Pressure 148/65 10/01/20 16:00 O2 Sat by Pulse Oximetry 99 10/01/20 16:00 - Lab Result Diagrams: 09/30/20 05:30 09/30/20 05:30 Micro Results-Entire Visit: Microbiology 09/29/20 14:20 Blood Culture Gram Stain - Final Blood Not Reportable Blood Culture - Final NO GROWTH 09/29/20 14:00 Blood Culture Gram Stain - Final Blood Not Reportable Blood Culture - Final Not Reportable 09/29/20 13:45 Urine Culture - Final Catherized Escherichia Coli - Discharge Discharge Date: 10/01/20 Disposition: Home, Self-Care Condition: Stable Prescriptions: New Cefuroxime Axetil 500 mg [Ceftin 500 mg] 500 mg PO BID 10 Days #20 tablet Continue Insulin Aspart [Novolog Flexpen] 6 unit SQ TIDWMEALS Levothyroxine Sodium 75 Mcg [Synthroid 75 Mcg] 75 mcg PO 0600 Glimepiride 2 mg [Amaryl 2 MG] 2 mg PO BID Omeprazole 40 mg PO DAILY Clopidogrel Bisulfate 75 mg [PLAVIX 75 MG Tablet] 75 mg PO DAILY Insulin Glargine [Lantus Insulin] 8 unit SQ 1700 Cetirizine HCl 10 mg PO DAILY Amlodipine Besylate/Benazepril [Lotrel 10-40 mg Capsule] 1 tab PO DAILY Acetaminophen [Acetaminophen Extra Strength] 1,000 mg PO Q8H Vits A,C,E/Lutein/Minerals [Ocuvite with Lutein Tablet] 1 each PO DAILY Naproxen 500 mg [Naprosyn 500 MG] 500 mg PO BIDPRN PRN PRN Reason: Pain Docusate Sodium 100 mg [Colace 100 MG] 100 mg PO Q12H PRN PRN PRN Reason: Constipation Instructions: Urinary Tract Infection, Adult (DC) Forms: Discharge Instructions, Discharge Skin Assessment
== END 2020-10-01 16:20 | disposition home or self-care (01) ==
LOC: ED 12:49 → MED SURG 18:32
PROVIDERS: ADMIT Family Medicine; ATTEND General Practice
DX: N39.0 Urinary tract infection, site not specified (principal); I10 Essential (primary) hypertension; E86.0 Dehydration; E11.9 Type 2 diabetes mellitus without complications; R22.0 Localized swelling, mass and lump, head; C34.90 Malignant neoplasm of unspecified part of unspecified bronchus or lung; R41.0 Disorientation, unspecified; Z79.899 Other long term (current) drug therapy; Z79.01 Long term (current) use of anticoagulants; Z20.828 Contact with and (suspected) exposure to other viral communicable diseases
CPT/HCPCS: 0241U; 36000; 36415; 51702; 70450; 80048; 80053; 81001; 82947; 83605; 85025; 87040; 87077; 87086; 87186; 96360; 96365; 99284; G0378; J1817; A9270-GY

== ENCOUNTER 2020-10-15 06:28 | Emergency (ER) | payer MEDICARE, OTHER ==
--- NOTE | 2020-10-15 06:35 | ERPHSYRPT ---
- History of Present Illness Occurred: just prior to arrival Reason for Fall: unknown Injuries/Pain Location: back Loss of Consciousness: no loss of consciousness Quality: stabbing, throbbing Severity of Pain-Max: severe Severity of Pain-Current: severe Modifying Factors: Improves With: movement Associated Symptoms (Fall): back pain Hx Tetanus, Diphtheria Vaccination/Date Given: Yes Hx Influenza Vaccination/Date Given: Yes Hx Pneumococcal Vaccination/Date Given: Yes <YULIANA MEJÍA - Last Filed: 10/15/20 06:44> <JESSE VALDEZ - Last Filed: 10/15/20 10:35> - History of Present Illness Time Seen by Provider: 10/15/20 06:32 Physician History: Patient is an 89-year-old female who has stage IV lung cancer and is on hospice who got out of bed this morning and suffered a fall. She denies any pain except in the lower back. She denies any loss of consciousness. The pain does not radiate to the legs. She request something for pain and rates her pain eight of ten on arrival. She presents by EMS. (YULIANA MEJÍA) Allergies/Adverse Reactions: hydrocodone bitartrate [From Vicodin] Allergy (Intermediate, Verified 09/29/20 19:00) Nausea codeine Allergy (Verified 09/29/20 19:00) Nausea nitrofurantoin [From Macrodantin] Allergy (Verified 09/29/20 19:00) Hives oxycodone Allergy (Verified 09/29/20 19:00) cephalexin [From Keflex] Adverse Reaction (Verified 09/29/20 19:00) Hives ciprofloxacin [From Cipro] Adverse Reaction (Verified 09/29/20 19:00) Hives Home Medications: Clopidogrel Bisulfate 75 mg [PLAVIX 75 MG Tablet] 75 mg PO DAILY 10/22/17 [History] Glimepiride 2 mg [Amaryl 2 MG] 2 mg PO BID 10/22/17 [History] Insulin Aspart [Novolog Flexpen] 6 unit SQ TIDWMEALS 10/22/17 [History] Levothyroxine Sodium 75 Mcg [Synthroid 75 Mcg] 75 mcg PO 0600 10/22/17 [History] Omeprazole 40 mg PO DAILY 10/22/17 [History] Acetaminophen [Acetaminophen Extra Strength] 1,000 mg PO Q8H 08/03/20 [History] Amlodipine Besylate/Benazepril [Lotrel 10-40 mg Capsule] 1 tab PO DAILY 08/03/20 [History] Cetirizine HCl 10 mg PO DAILY 08/03/20 [History] Insulin Glargine [Lantus Insulin] 8 unit SQ 1700 08/03/20 [History] Vits A,C,E/Lutein/Minerals [Ocuvite with Lutein Tablet] 1 each PO DAILY 08/03/20 [History] Docusate Sodium 100 mg [Colace 100 MG] 100 mg PO Q12H PRN PRN 09/29/20 [ History] Naproxen 500 mg [Naprosyn 500 MG] 500 mg PO BIDPRN PRN 09/29/20 [History] Travel Risk - Vaccine Status Have you recieved a Covid-19 vaccination: Yes Custodial Foreman: [place] - Vaccination Dates Date of 2cond Vaccination (if applicable): 07/16/20 <YULIANA MEJÍA - Last Filed: 10/15/20 06:44> - Review of Systems Constitutional: No Fever, No Chills Eyes: No Symptoms Ears, Nose, & Throat: No Symptoms Respiratory: No Cough, No Dyspnea Cardiac: No Chest Pain, No Edema, No Syncope Abdominal/Gastrointestinal: No Abdominal Pain, No Nausea, No Vomiting, No Diarrhea Genitourinary Symptoms: No Dysuria Musculoskeletal: Back Pain, No Neck Pain Skin: No Rash Neurological: No Dizziness, No Focal Weakness, No Sensory Changes Psychological: No Symptoms Endocrine: No Symptoms All Other Systems: Reviewed and Negative <YULIANA MEJÍA - Last Filed: 10/15/20 06:44> - Past Medical History Pertinent Past Medical History: Yes Neurological History: Peripheral Neuropathy ENT History: Macular Degeneration Cardiac History: Hypertension, Other Respiratory History: Bronchitis Endocrine Medical History: Diabetes Type II, Other Musculoskeletal History: Other GI Medical History: GERD History: Other Psycho-Social History: No Pertinent History Female Reproductive Disorders: No Pertinent History Other Medical History: GERD, Spondylosis, Cellulitis (LLE), cataract removal, Bladder surgery, Microvascular decompression, Red's Disease - Past Surgical History Past Surgical History: Yes Neuro Surgical History: No Pertinent History Cardiac: No Pertinent History Respiratory: No Pertinent History Gastrointestinal: No Pertinent History Genitourinary: No Pertinent History Musculoskeletal: Orthopedic Surgery Female Surgical History: No Pertinent History Other Surgical History: bladder sling, micro vascular decompression to head after fall on the ice,Cataract removed w/ lens implant rodrigo eye, l hip orif - Social History Smoking Status: Former smoker How long have you smoked: 65 years Exposure to second hand smoke: No Drug Use: none <YULIANA MEJÍA - Last Filed: 10/15/20 06:44> - [place] Coma Score Best Eye Response ([place]): (4) open spontaneously Best Verbal Response ([place]): (5) oriented Best Motor Response ([place]): (6) obeys commands [place] Total: 15 - Physical Exam General Appearance: moderate distress, alert Head Injury: no evidence of injury Eye Exam: PERRL/EOMI ENT Exam: airway nml Neck Exam: normal inspection, No tenderness Respiratory/Chest Exam: normal breath sounds, No chest tenderness, No respiratory distress Cardiovascular Exam: normal heart sounds, regular rate/rhythm Gastrointestinal Exam: soft, No tenderness, No distention, No guarding, No ecchymosis Back Exam: normal inspection, vertebral tenderness, decreased range of motion Extremity Exam: normal inspection, normal range of motion, pelvis stable, No deformities Neurologic Exam: alert, oriented x 3, cooperative, sensation nml, No motor deficits Skin Exam: normal color, warm, dry <YULIANA MEJÍA - Last Filed: 10/15/20 06:44> - Nursing Vital Signs Nursing Vital Signs: Initial Vital Signs Temperature 98.5 F 10/15/20 06:29 Pulse Rate 79 10/15/20 06:29 Respiratory Rate 18 10/15/20 06:29 Blood Pressure 159/72 10/15/20 06:29 O2 Sat by Pulse Oximetry 97 10/15/20 06:29 Pain Scale Pain Intensity 8 - Course Nursing assessment & vital signs reviewed: Yes <YULIANA MEJÍA Last Filed: 10/15/20 06:44> Ordered Tests: Active Orders 24 hr Category Date Time Status Rivas [Catheter-[place] Rivas] STAT Care 10/15/20 10:03 Active IV Insertion STAT Care 10/15/20 06:36 Active CHEST 1 VIEW (PORTABLE) Stat Exams 10/15/20 09:26 Taken LUMBAR SPINE W/O [CT] Stat Exams 10/15/20 06:36 Completed CBC W DIFF Stat Lab 10/15/20 07:00 Completed CMP Stat Lab 10/15/20 07:00 Completed Lactic Acid Stat Lab 10/15/20 06:57 Completed Manual Differential NC Stat Lab 10/15/20 07:00 Completed TROPONIN Q3H Lab 10/15/20 07:00 Completed Medication Summary Generic Name Dose Route Start Last Admin Trade Name Freq PRN Reason Stop Dose Admin Sodium Chloride 1,000 mls @ 100 mls/hr 10/15/20 06:45 10/15/20 06:56 Sodium Chloride 0.9% 1000 Ml IV 11/14/20 06:44 100 mls/hr .Q10H ASAEL Administration Discontinued Medications Generic Name Dose Route Start Last Admin Trade Name Freq PRN Reason Stop Dose Admin Fentanyl Citrate 50 mcg 10/15/20 06:36 10/15/20 06:56 Sublimaze 100 Mcg/2 Ml IV 10/15/20 06:37 50 mcg STAT ONE Administration Fentanyl Citrate Confirm 10/15/20 06:55 Sublimaze 100 Mcg/2 Ml Administered 10/15/20 06:56 Dose 100 mcg .ROUTE .STK-MED ONE Fentanyl Citrate 50 mcg 10/15/20 08:50 10/15/20 08:52 Sublimaze 100 Mcg/2 Ml IV 10/15/20 08:51 50 mcg STAT ONE Administration Fentanyl Citrate Confirm 10/15/20 08:51 Sublimaze 100 Mcg/2 Ml Administered 10/15/20 08:52 Dose 100 mcg .ROUTE .STK-MED ONE Ondansetron HCl 4 mg 10/15/20 06:36 10/15/20 06:56 Zofran 4 Mg/2 Ml Vial IV 10/15/20 06:37 4 mg STAT ONE Administration Ondansetron HCl Confirm 10/15/20 06:55 Zofran 4 Mg/2 Ml Vial Administered 10/15/20 06:56 Dose 4 mg .ROUTE .STK-MED ONE Lab/Rad Data: Laboratory Result Diagrams 10/15/20 07:00 10/15/20 07:00 Laboratory Results 10/15/20 10/15/20 10/15/20 Range/Units 07:00 07:00 07:00 WBC 15.8 H (4.0-10.5) K/mm3 RBC 3.57 L (4.1-5.4) M/mm3 Hgb 10.5 L (12.0-16.0) gm/dl Hct 32.2 L (35-47) % MCV 90.2 (78-100) fl MCH 29.4 (26-32) pg MCHC 32.6 (32-36) g/dl RDW 14.1 H (11.5-14.0) % Plt Count 543 H (150-450) K/mm3 MPV 8.8 (7.5-11.0) fl Segmented Neutrophils 89 H (36.0-66.0) % Lymphocytes (Manual) 3 L (24-44) % Monocytes (Manual) 8 (0.0-12.0) % Platelet Estimate INCREASED (NORMAL) RBC Morphology NORMAL Sodium 128 L (137-145) mmol/L Potassium 4.9 (3.5-5.1) mmol/L Chloride 96 L (98-107) mmol/L Carbon Dioxide 23 (22-30) mmol/L Anion Gap 13.5 (5-15) MEQ/L BUN 20 H (7-17) mg/dL Creatinine 0.81 (0.52-1.04) mg/dL Estimated GFR > 60.0 ML/MIN Glucose 205 H (74-106) mg/dL Lactic Acid (0.4-2.0) Calcium 9.4 (8.4-10.2) mg/dL Total Bilirubin 0.50 (0.2-1.3) mg/dL AST 32 (14-36) U/L ALT 23 (0-35) U/L Alkaline Phosphatase 148 H (38-126) U/L Troponin I < 0.012 (0.000-0.034) ng/mL Serum Total Protein 7.0 (6.3-8.2) g/dL Albumin 3.7 (3.5-5.0) g/dL 10/15/20 Range/Units 06:57 WBC (4.0-10.5) K/mm3 RBC (4.1-5.4) M/mm3 Hgb (12.0-16.0) gm/dl Hct (35-47) % MCV (78-100) fl MCH (26-32) pg MCHC (32-36) g/dl RDW (11.5-14.0) % Plt Count (150-450) K/mm3 MPV (7.5-11.0) fl Segmented Neutrophils (36.0-66.0) % Lymphocytes (Manual) (24-44) % Monocytes (Manual) (0.0-12.0) % Platelet Estimate (NORMAL) RBC Morphology Sodium (137-145) mmol/L Potassium (3.5-5.1) mmol/L Chloride (98-107) mmol/L Carbon Dioxide (22-30) mmol/L Anion Gap (5-15) MEQ/L BUN (7-17) mg/dL Creatinine (0.52-1.04) mg/dL Estimated GFR ML/MIN Glucose (74-106) mg/dL Lactic Acid 0.9 (0.4-2.0) Calcium (8.4-10.2) mg/dL Total Bilirubin (0.2-1.3) mg/dL AST (14-36) U/L ALT (0-35) U/L Alkaline Phosphatase (38-126) U/L Troponin I (0.000-0.034) ng/mL Serum Total Protein (6.3-8.2) g/dL Albumin (3.5-5.0) g/dL - Progress Progress: improved, re-examined Counseled pt/family regarding: diagnosis, need for follow-up, rad results <VALDEZJESSE ChaloMichelle - Last Filed: 10/15/20 10:35> - Progress Progress Note: 10/15/20 07:37 Medical decision making: This patient was checked out to me by Dr. Mejía at shift change. He had ordered several tests including urine and blood tests. He had also ordered a CAT scan of the lumbar spine. The patient's daughter, who is her medical POA states that the patient has metastatic lung cancer to the brain and she does not want an extensive work-up. She agrees to the CAT scan of the lumbar spine and pain control. I think this is reasonable. We will have her sign a refusal of the laboratory testing/EKG etc. that was previously ordered by Dr. Mejía 10/15/20 08:35 CAT scan of the lumbar spine without contrast shows minimal L1 vertebral body compression fracture. There is multilevel degenerative changes present. This is a new finding. There is no spinal canal or foraminal compromise. 10/15/20 10:32 Medical decision making: This patient does not require in-hospital care. She d oes have a new minimal L1 vertebral body compression fracture. Penny, our emergency room nurse spoke with hospice and what the family and patient decided on is that the patient will go home and not to a correction. This was the family the patient's decision. Arrangements are being made for her to receive a hospital bed and 24-hour care. Patient has morphine at home so she does not require any prescriptions for narcotic pain control. She also has tramadol at home. Patient desires to be discharged to home and not in the hospital or in a correction anywhere. (JESSE VALDEZ) - Departure Departure Disposition: Observation Critical Care Time: No <YULIANA MEJÍA - Last Filed: 10/15/20 06:44> <JESSE VALDEZ - Last Filed: 10/15/20 10:35> - Departure Clinical Impression: Low back pain, Fall, Compression fx, lumbar spine Condition: Good Referrals: TIFFANIE LENNON MD [Primary Care Provider] - Additional Instructions: Use your tramadol and morphine that you have at home for pain control. Continue hospice care. Follow-up with your primary care physician for chronic pain control. Return to the emergency department if needed.
[2020-10-15] MEDS ORDERED: Sodium Chloride 0.9% 1000 ML 1,000 ML ONE (06:55)
[2020-10-15] MEDS ORDERED: SUBLIMAZE 100 MCG/2 ML ONE ×3 (06:55→13:31)
[2020-10-15] MEDS ORDERED: Zofran 4 MG/2 ML VIAL ONE ×2 (06:55→13:31)
[2020-10-15] MEDS: Sodium Chloride 0.9% 1000 ML 1,000 ML IV SCH (06:56)
[2020-10-15] MEDS: SUBLIMAZE 100 MCG/2 ML IV ONE ×3 (06:56→13:37)
[2020-10-15] MEDS: Zofran 4 MG/2 ML VIAL IV ONE ×2 (06:56→13:40)
[2020-10-15 07:04] LABS: Hematocrit 32.2 % (35-47); Hemoglobin 10.5 gm/dl (12.0-16.0); Mean Cell Volume 90.2 fl (78-100); Mean Corpuscular Hemoglobin 29.4 pg (26-32); Mean Corpuscular Hgb Concent. 32.6 g/dl (32-36); Mean Platelet Volume 8.8 fl (7.5-11.0); Platelet Count 543 K/mm3 (150-450); Red Blood Count 3.57 M/mm3 (4.1-5.4); Red Cell Distribution Width 14.1 % (11.5-14.0); White Blood Count 15.8 K/mm3 (4.0-10.5)
[2020-10-15 07:18] LABS: ALBUMIN 3.7 g/dL (3.5-5.0); ALKALINE PHOSPHATASE 148 U/L (38-126); ANION GAP 13.5 MEQ/L (5-15); BLOOD UREA NITROGEN 20 mg/dL (7-17); CHLORIDE 96 mmol/L (98-107); Calcium 9.4 mg/dL (8.4-10.2); Carbon Dioxide 23 mmol/L (22-30); Creatinine 1 0.81 mg/dL (0.52-1.04); EST GLOMERULAR FILTRATION RATE > 60.0 ML/MIN; Glucose 205 mg/dL (74-106); Potassium 4.9 mmol/L (3.5-5.1); SGOT/AST 32 U/L (14-36); SGPT/ALT 23 U/L (0-35); SODIUM 128 mmol/L (137-145)
[2020-10-15 08:00] LABS: Lymphocytes 3 % (24-44); Monocyte 8 % (0.0-12.0); Neutrophils 89 % (36.0-66.0); Total Cells Counted 100
[2020-10-15 08:01] LABS: Platelet Estimate INCREASED (NORMAL)
--- NOTE | 2020-10-15 08:20 | XRAY ---
Indication: Pain following fall. Stage IV lung cancer. Multiple contiguous axial images obtained through the lumbar spine. Sagittal and coronal reformatted images obtained. Comparison: Lumbar radiograph August 23, 2014. There remains age-related osteopenia. Progressive worsening moderate/advanced multilevel lumbar degenerative spondylosis greatest at the L4-S1 levels. New L2-L3 and L4-S1 degenerative vacuum disc phenomena. New L1 superior endplate acute fracture with less than 25% height loss. No spinal canal or foraminal compromise. Facets are symmetric again with L4-S1 degenerative facet hypertrophy. Sagittal and coronal reformatted images demonstrates stable normal lumbar lordosis and minimal dextroscoliosis centered at L2. Worsening L2-L3 and L4-L5-S1 disc space loss. No subluxation. Visualized noncontrasted soft tissues again demonstrates heavy scattered vascular calcifications. Incidental 7 mm gallstone and scattered colonic diverticulosis. Impression: 1. New L1 superior endplate acute fracture without spinal canal or foraminal compromise. 2. Again osteopenia, scoliosis, and progressive worsening multilevel degenerative spondylosis. 3. Incidental gallstone, heavy arteriosclerotic calcifications, and colonic diverticulosis. Comment: Preliminary interpretation was made by [facility]. No critical discrepancy.
[2020-10-15 12:35] LABS: Appearance SLIGHTLY CLOUDY (CLEAR); Bilirubin NEGATIVE (NEGATIVE); Blood NEGATIVE Ery/ul (0-5); Glucose NEGATIVE (NEGATIVE); Ketones NEGATIVE (NEGATIVE); Leukocyte Esterase MODERATE (NEGATIVE); Mucus SLIGHT /HPF (NEGATIVE); Nitrite NEGATIVE (NEGATIVE); Protein,Urine Dip NEGATIVE (Negative); Specific Gravity 1.012 (1.005-1.025); Urobilinogen NEGATIVE mg/dL (0-1); WBC 26-50 /HPF (0-5)
[2020-10-15 13:48] VITALS: BP 118/51; PULSE 82; O2SAT 92
--- NOTE | 2020-10-15 18:20 | XRAY ---
Indication: Back pain. History stage IV lung cancer. Comparison: May 16, 2016. Portable chest demonstrates new right upper lobe mass measuring at least 6.5 x 6.3 cm presumed known malignancy. Also new 2.5 cm peripheral left upper lobe and 2.5 cm left base masslike opacities. No large effusion. Heart not enlarged again with subcarinal calcified node. Bony thorax intact with mild osteopenia and degenerative changes.
== END 2020-10-15 15:08 | disposition home or self-care (01) ==
LOC: ED 06:28
DX: M54.5 Low back pain (principal); S32.009A Unspecified fracture of unspecified lumbar vertebra, initial encounter for closed fracture; W19.XXXA Unspecified fall, initial encounter; Y93.89 Activity, other specified; Y92.9 Unspecified place or not applicable; C34.90 Malignant neoplasm of unspecified part of unspecified bronchus or lung; Z79.899 Other long term (current) drug therapy; I10 Essential (primary) hypertension; E11.9 Type 2 diabetes mellitus without complications; K21.9 Gastro-esophageal reflux disease without esophagitis; G62.9 Polyneuropathy, unspecified
CPT/HCPCS: 36000; 36415; 51702; 71045; 72131; 80053; 81001; 83605; 84484; 85025; 87077; 87086; 87186; 96374; 96375; 96376; 99285; J2405; J3010